=== PATIENT | male | born 1950 | race Caucasian/White ===

== ENCOUNTER 2022-08-13 11:15 | Inpatient (IN) | payer MEDICARE, OTHER, SELFPAY ==
--- NOTE | ~2022-08-13 | CT_ITS ---
EXAMINATION: CT angio head neck CLINICAL INFORMATION: Subacute stroke. COMPARISON: None. TECHNIQUE: Psychiatry Teacher images were obtained. A CT angiogram of the head and neck was performed in the arterial phase after the intravenous administration of 50 mL Omnipaque 350. Pre and delayed postcontrast images of the head were also obtained. MIP reconstructions were generated in multiple orientations at the acquisition workstation. Multiple three-dimensional surface rendered images and maximum intensity projection images were generated on a dedicated 3-D lab workstation. Arterial stenoses are measured in accordance with NASCET criteria or similar method if applicable. This CT examination was performed using dose optimization techniques as appropriate, including one or more of the following: Automated exposure control, iterative reconstruction, and adjustment of technique factors (mA and/or kVp) according to patient size (this includes techniques or standardized protocols for targeted exams where dose is matched to indication/reason for exam). Fleischner Society criteria for the followup of incidental pulmonary nodules was implemented if appropriate. Total exam dose-length product 2517 mGy-cm FINDINGS: Head: Postcontrast images reveal no abnormal intracranial mass or enhancement. There is no acute intracranial hemorrhage or abnormal extra-axial collection. No intracranial mass effect. No hydrocephalus. Scattered nonspecific foci of hypoattenuation are visualized within the periventricular white matter. No evidence of acute territorial infarct. The calvarium and skull base are intact. Mastoid air cells and middle ear cavities are well aerated. No active paranasal sinus disease. CT angiogram neck: The aortic arch apex is normal. Origins of the major aortic branches are widely patent. Common carotid arteries are normal. Eccentric partially calcified atheromatous plaque involves both carotid bifurcations. There is mild be due to irregularity involving both extra cranial internal carotid arteries, slightly greater on the left side suggesting the possibility of underlying fibromuscular dysplasia. Extracranial internal carotid arteries are otherwise unremarkable. Fibromuscular dysplasia is also evident along the V2 V3 junction of both vertebral arteries. CT angiogram head: Intracranial internal carotid arteries are patent. Intradural vertebral artery segments and basilar artery are patent. Visualized portions of the anterior, middle, and posterior cerebral artery complexes are normal. No intracranial large vessel occlusion. Other: Soft tissues of the neck including the thyroid gland are normal. Grossly no pathologically enlarged cervical lymph nodes. Visualized lung apices are clear. There is no acute osseous finding. Specific no worrisome lytic or blastic osseous lesion. There is is advanced multilevel degenerative spondylosis of the cervical spine with at least mild canal stenosis at multiple levels. CT/CT angio head neck IMPRESSION: The known white matter infarct involving the right centrum semiovale is well visualized on this examination. No new infarct or hemorrhage. No abnormal intracranial mass or enhancement. There are anatomic features of fibromuscular dysplasia involving both extracranial internal carotid arteries and vertebral arteries. There is eccentric partially calcified atheromatous plaque involves both carotid bifurcations. No stenosis of the cervical carotid or vertebral arteries. No intracranial large vessel occlusion. There are scattered chronic small vessel ischemic changes within the periventricular white matter. No evidence of acute territorial infarct or hemorrhage. No abnormal intracranial mass or enhancement. There is advanced multilevel degenerative spondylosis of the cervical spine with at least mild canal stenosis at multiple levels. If there are clinical symptoms of compressive myelopathy then a dedicated cervical spine MRI can be obtained for better anatomic characterization of the cord and canal.
[2022-08-13 11:25] VITALS: BP 166/77; PULSE 61; RESP 18; TEMP 36.6; O2SAT 97; BMI 31.0
--- NOTE | 2022-08-13 11:50 | ECG_ITS ---
Test Reason : NEURO SYMPTOMS Blood Pressure : / mmHG Vent. Rate : 064 BPM Atrial Rate : 064 BPM P-R Int : 182 ms QRS Dur : 104 ms QT Int : 402 ms P-R-T Axes : 050 002 024 degrees QTc Int : 414 ms Normal sinus rhythm Minimal voltage criteria for LVH, may be normal variant ( R in aVL ) Inferior infarct , age undetermined Abnormal ECG No previous ECGs available Referred By: Melissa King Electronically Signed By:Cl De Los Santos
--- NOTE | 2022-08-13 11:57 | ED.NEUROSD ---
HPI - Neuro Symptoms/Deficit General Chief Complaint: Stroke Stated Complaint: Stroke Time Seen by Provider: 08/13/22 11:35 Source: patient and family Mode of arrival: ambulatory History of Present Illness HPI Narrative: This is a 72-year-old male, history of hypertension and remote history of atrial fibrillation for which he was never placed on anticoagulation and underwent an ablation procedure. Patient currently takes an aspirin daily and states that on Thursday he began to feel a little dizzy, not myself, lightheaded? but denies any visual/speech changes and denies any difficulty with numbness/tingling/weakness unilaterally and states that when he took his blood pressure he was noted to be hypertensive. Patient then followed up with his primary care provider on Thursday who felt like he may have some very mild left lid droop and sent him for an MRI. Patient states that he feels better today and also says that he felt better yesterday when he saw his primary care provider. Patient denies any recent illnesses or feelings of racing heart/palpitations. Related Data Home Medications Medication Instructions Recorded Confirmed aspirin 81 mg tablet,delayed 81 mg PO DAILY 08/13/22 08/13/22 release atorvastatin 40 mg tablet 1 tab PO BEDTIME 08/13/22 08/13/22 cholecalciferol (vitamin D3) 50 50 mcg PO DAILY 08/13/22 08/13/22 mcg (2,000 unit) capsule gabapentin 600 mg tablet 1 tab PO TID 08/13/22 08/13/22 losartan 25 mg tablet 1 tab PO DAILY 08/13/22 08/13/22 multivitamin 1 tab PO DAILY 08/13/22 08/13/22 nebivolol 20 mg tablet 1 tab PO DAILY 08/13/22 08/13/22 tamsulosin 0.4 mg capsule 1 cap PO DAILY 08/13/22 08/13/22 Allergies Allergy/AdvReac Type Severity Reaction Status Date / Time No Known Allergies Allergy Verified 08/13/22 11:24 Review of Systems Review of Systems: Pertinent positives and negatives as stated in HPI [facility] Past Medical History Source: nursing notes reviewed Medical History GI bleed Hypertension Surgical History History of total knee replacement Social History Social History Alcohol intake: current Alcohol intake frequency: holidays/special occasions only Smoked in Last 30 Days: No Use of substances other than those prescribed or required for medical reasons: No Advance Directives: Yes Advance Directives Information Provided: No Advance Directives on File: No Physical Exam Vital Signs: Vital Signs: Last Vital Signs Temp 97.8 F 08/13/22 11:25 Pulse 58 08/13/22 12:00 Resp 16 08/13/22 12:00 BP 167/86 H 08/13/22 12:00 Pulse Ox 94 08/13/22 12:00 O2 Del Method 08/13/22 12:00 BMI result Body Mass Index 31.0 VITAL SIGNS: Reviewed. GENERAL: Well developed, well nourished, in no acute distress. HEAD: Normocephalic/atraumatic EYES: PERRLA, EOMI, no nystagmus EARS: Ext canals without abnormality OROPHARYNX: no oral lesions noted, posterior pharynx clear NECK: Supple, no adenopathy LUNGS: Normal breath sounds. No adventitious sounds or accessory muscle use. SpO2<94> CARDIOVASCULAR: Regular rate and rhythm without noted murmurs, no JVD or lower extremity edema. ABDOMEN: Soft, non-tender, non-distended with bowel sounds. MUSCULOSKELETAL: No tenderness, deformities, or effusions noted on gross inspection. EXTREMITIES: No cyanosis, clubbing or edema. SKIN: Inspection of the skin reveals no rashes, ulcerations, jaundice, pallor, or petechiae. NEUROLOGIC: Alert and oriented x 4. Strength and sensation to light touch were grossly intact x 4, no facial asymmetry, no pronator drift, no sensory deficits, finger pass pointing demonstrates some subtle ataxia, heel to clement also demonstrates some very mild ataxia on the left, otherwise cranial nerves 2-12 are grossly intact. On attempting to ambulate the patient he was noted to have an unsteady gait on attempts to walk a line?. Medications Administered Discontinued Medications Generic Name Dose Route Start Last Admin Trade Name Freq PRN Reason Stop Dose Admin Aspirin 81 mg 08/13/22 13:22 08/13/22 13:33 Aspirin 81 Mg Tab.Chew PO 08/13/22 13:23 81 mg ONCE ONE Administration Iohexol 70 ml 08/13/22 13:19 08/13/22 13:19 Iohexol 350 Mg/Ml 75 Ml Infus..Btl IV 08/13/22 13:20 70 ml ONCE ONE Administration Medical Decision Making Medical Decision Making [facility] Narrative: 72-year-old male with history and clinical presentation consistent with subacute lacunar stroke on outpatient MRI with residual albeit mild ataxia for the left side, no gross motor or sensory deficits noted, blood pressure is noted to be SBP-166, EKG demonstrates normal sinus rhythm, the billing coordinator (Cary) is at the bedside with me and is attempting to get the MRI results from [facility] uploaded into our PACS system, will proceed with labs, CT angio of head and neck (not stroke protocol). The family is at bedside and is aware of the workup and plan for admission. 1324: On review of all investigations my interpretation is patient is had subacute right-sided stroke, report is that it is look who known are but exact location is not known at this time. Patient with residual left-sided ataxia but no gross motor or sensory deficits. Patient is already on aspirin, CRP is mildly elevated otherwise TSH/ESR are within normal limits. Neurology was at bedside and is involved with patient's care. I discussed the case with the inpatient hospitalist who accepts admission, consult for medication reconciliation has been entered, patient will be admitted for telemetry and further evaluation. Both he and his family are aware of the plan. Differential Diagnosis Differential Diagnoses: The differential diagnosis associated with the presentation includes Please see the discussion above Consult Healthcare Provider Management of the patient was discussed with: Community Service Representative Neurology In Hospitalist Lab Data [facility] Lab Attestation statement: I reviewed the patient's lab results. Please see the discussion above 08/13/22 12:13 08/13/22 12:13 Labs: Lab Results 08/13/22 08/13/22 08/13/22 Range/Units 12:13 12:13 12:13 WBC 4.5 L (4.8-10.8) X10*3/uL RBC 4.73 (4.60-5.80) X10*6/uL Hgb 13.3 L (14.0-18.0) g/dl Hct 40.1 L (42.0-52.0) % MCV 84.8 (80.0-98.0) fL MCH 28.1 (27.0-33.0) pg MCHC 33.2 (31.0-36.0) g/dl RDW 14.1 (11.0-16.0) % Plt Count 143 L (160-400) X10*3/uL MPV 9.3 L (9.4-12.4) fL Immature Gran % (Auto) 0.4 (0.0-0.4) % Neut % (Auto) 63.8 (45-73) % Lymph % (Auto) 23.0 (20-40) % Knott % (Auto) 9.3 (2-11) % Eos % (Auto) 3.1 (0-4) % Baso % (Auto) 0.4 (0-2) % Lymph # (Auto) 1.0 L (1.2-4.9) X10*3/uL Knott # (Auto) 0.4 (0.1-1.2) X10*3/uL Eos # (Auto) 0.1 (0.0-0.4) X10*3/uL Baso # (Auto) 0.0 (0.0-0.2) X10*3/uL Abs Immat Gran (auto) 0.02 (0.00-0.03) X10*3/uL Absolute Neuts (auto) 2.9 (2.0-8.3) x10*3/uL Absolute Nucleated RBC 0.000 (0.0-0.012) X10*3/uL Nucleated RBC % (auto) 0.0 (0.0-0.2) /100WBC ESR (0-15) MM/HR PT 12.3 (10.0-13.1) SEC INR 1.1 (0.9-1.1) APTT 30.6 (26.0-36.4) SEC Sodium 140 (135-145) mmol/L Potassium 4.4 (3.3-5.1) mmol/L Chloride 105 (96-108) mmol/L Carbon Dioxide 29 (22-29) mmol/L Anion Gap 10 L (12-20) BUN 18 H (9-16) mg/dL Creatinine 0.90 (0.5-1.4) mg/dL Estim Creat Clear Calc 84.4 Estimated GFR > 60 POC Glucose (60-115) mg/dL Random Glucose 90 (60-115) mg/dL Calcium 9.4 (8.4-10.2) mg/dL Total Bilirubin 1.1 H (0.0-1.0) mg/dL AST 18 (5-37) U/L ALT 25 (0-40) U/L Alkaline Phosphatase 78 (39-117) U/L Troponin I High Sens (<3.5-35.0) ng/L C-Reactive Protein 0.51 H (< or = 0.50) mg/dL Total Protein 6.6 (6.5-8.0) g/dL Albumin 4.1 (3.5-5.0) g/dL TSH 0.96 (0.32-4.0) uIU/mL COVID-19 ([facility]STIAN) (Negative) COVID-19 Clin Com 08/13/22 08/13/22 08/13/22 Range/Units 12:13 12:13 12:13 WBC (4.8-10.8) X10*3/uL RBC (4.60-5.80) X10*6/uL Hgb (14.0-18.0) g/dl Hct (42.0-52.0) % MCV (80.0-98.0) fL MCH (27.0-33.0) pg MCHC (31.0-36.0) g/dl RDW (11.0-16.0) % Plt Count (160-400) X10*3/uL MPV (9.4-12.4) fL Immature Gran % (Auto) (0.0-0.4) % Neut % (Auto) (45-73) % Lymph % (Auto) (20-40) % Knott % (Auto) (2-11) % Eos % (Auto) (0-4) % Baso % (Auto) (0-2) % Lymph # (Auto) (1.2-4.9) X10*3/uL Knott # (Auto) (0.1-1.2) X10*3/uL Eos # (Auto) (0.0-0.4) X10*3/uL Baso # (Auto) (0.0-0.2) X10*3/uL Abs Immat Gran (auto) (0.00-0.03) X10*3/uL Absolute Neuts (auto) (2.0-8.3) x10*3/uL Absolute Nucleated RBC (0.0-0.012) X10*3/uL Nucleated RBC % (auto) (0.0-0.2) /100WBC ESR 7 (0-15) MM/HR PT (10.0-13.1) SEC INR (0.9-1.1) APTT (26.0-36.4) SEC Sodium (135-145) mmol/L Potassium (3.3-5.1) mmol/L Chloride (96-108) mmol/L Carbon Dioxide (22-29) mmol/L Anion Gap (12-20) BUN (9-16) mg/dL Creatinine (0.5-1.4) mg/dL Estim Creat Clear Calc Estimated GFR POC Glucose (60-115) mg/dL Random Glucose (60-115) mg/dL Calcium (8.4-10.2) mg/dL Total Bilirubin (0.0-1.0) mg/dL AST (5-37) U/L ALT (0-40) U/L Alkaline Phosphatase (39-117) U/L Troponin I High Sens 12.1 (<3.5-35.0) ng/L C-Reactive Protein (< or = 0.50) mg/dL Total Protein (6.5-8.0) g/dL Albumin (3.5-5.0) g/dL TSH (0.32-4.0) uIU/mL COVID-19 ([facility]IAN) Negative (Negative) COVID-19 Clin Com See Note 08/13/22 Range/Units 12:40 WBC (4.8-10.8) X10*3/uL RBC (4.60-5.80) X10*6/uL Hgb (14.0-18.0) g/dl Hct (42.0-52.0) % MCV (80.0-98.0) fL MCH (27.0-33.0) pg MCHC (31.0-36.0) g/dl RDW (11.0-16.0) % Plt Count (160-400) X10*3/uL MPV (9.4-12.4) fL Immature Gran % (Auto) (0.0-0.4) % Neut % (Auto) (45-73) % Lymph % (Auto) (20-40) % Knott % (Auto) (2-11) % Eos % (Auto) (0-4) % Baso % (Auto) (0-2) % Lymph # (Auto) (1.2-4.9) X10*3/uL Knott # (Auto) (0.1-1.2) X10*3/uL Eos # (Auto) (0.0-0.4) X10*3/uL Baso # (Auto) (0.0-0.2) X10*3/uL Abs Immat Gran (auto) (0.00-0.03) X10*3/uL Absolute Neuts (auto) (2.0-8.3) x10*3/uL Absolute Nucleated RBC (0.0-0.012) X10*3/uL Nucleated RBC % (auto) (0.0-0.2) /100WBC ESR (0-15) MM/HR PT (10.0-13.1) SEC INR (0.9-1.1) APTT (26.0-36.4) SEC Sodium (135-145) mmol/L Potassium (3.3-5.1) mmol/L Chloride (96-108) mmol/L Carbon Dioxide (22-29) mmol/L Anion Gap (12-20) BUN (9-16) mg/dL Creatinine (0.5-1.4) mg/dL Estim Creat Clear Calc Estimated GFR POC Glucose 81 (60-115) mg/dL Random Glucose (60-115) mg/dL Calcium (8.4-10.2) mg/dL Total Bilirubin (0.0-1.0) mg/dL AST (5-37) U/L ALT (0-40) U/L Alkaline Phosphatase (39-117) U/L Troponin I High Sens (<3.5-35.0) ng/L C-Reactive Protein (< or = 0.50) mg/dL Total Protein (6.5-8.0) g/dL Albumin (3.5-5.0) g/dL TSH (0.32-4.0) uIU/mL COVID-19 ([facility]IAN) (Negative) COVID-19 Clin Com Independent Interpretation I performed an independent interpretation of an: EKG Interpretation: Normal sinus rhythm, HR-64, VT/QTC are within normal limits, QRS-104 Chronic Conditions Patient?s care impacted by: Hypertension Critical Care Time Critical Care Time Critical Care Time: Yes Total Critical Care Time: 30 Attestation: I personally attest to this time spent taking care of the patient. Discharge Plan Discharge Clinical Impression: Cerebrovascular accident Patient Disposition: Admitted As Inpatient
[2022-08-13 12:00] VITALS: BP 167/86; PULSE 58; RESP 16; O2SAT 94
[2022-08-13 12:20] LABS: MANUAL DIFF FLAG NO
[2022-08-13 12:25] LABS: Basophils Percent Auto 0.4 % (0-2); Eosinophils Absolute Auto 0.1 X10*3/uL (0.0-0.4); Eosinophils Percent Auto 3.1 % (0-4); Hematocrit 40.1 % (42.0-52.0); Hemoglobin 13.3 g/dl (14.0-18.0); Imm Gran Abs Auto 0.02 X10*3/uL (0.00-0.03); Imm Gran Pct Auto 0.4 % (0.0-0.4); Mean Corpuscular HGB Conc 33.2 g/dl (31.0-36.0); Mean Corpuscular Hemoglobin 28.1 pg (27.0-33.0); Mean Corpuscular Volume 84.8 fL (80.0-98.0); Mean Platelet Volume 9.3 fL (9.4-12.4); Monocytes Absolute Auto 0.4 X10*3/uL (0.1-1.2); Monocytes Percent Auto 9.3 % (2-11); Neutrophils Absolute Auto 2.9 x10*3/uL (2.0-8.3); Neutrophils Percent Auto 63.8 % (45-73); Platelet Count 143 X10*3/uL (160-400); Red Blood Count 4.73 X10*6/uL (4.60-5.80); Red Cell Distribution Width 14.1 % (11.0-16.0); White Blood Count 4.5 X10*3/uL (4.8-10.8)
[2022-08-13 12:27] LABS: INTERNATIONAL NORM RATIO 1.1 (0.9-1.1); Prothrombin Time 12.3 SEC (10.0-13.1)
--- OUTSIDE RECORDS SUMMARY | 2022-08-13 12:40 | XMS_ITS | Continuity of Care Document ---
:1950 Author Organization [facility] Address [address] [place] [phone]- Care Team Providers Name Role Phone Eren Petty MD Primary Care Physician Encounter [facility] [place] Date(s): 02/13/20 - 02/20/20 [facility] [address] [place] [phone]- [facility] Attending Physician: Oumsane Gonzalez MD Admitting Physician: Ousmane Gonzalez MD Referring Physician: Eren Petty MD Allergies, Adverse Reactions, Alerts Substance Reaction Severity Status simvastatin body aches Active Immunizations Given and Recorded Vaccine Date Status Refusal Reason tetanus-diphtheria toxoids (Td) 04/23/11 Given Medications aspirin 81 mg oral delayed release tablet 81 mg, 1, tablet, By Mouth, Daily, # 30 tablet, Refills 0, Tot. Refills 0, Maintenance, 06/08/18 9:38:59 EST, Print Requisition Start Date: 06/08/18 Stop Date: 07/08/18 Status: Orderedatenolol 50 mg oral tablet 50 mg, 1, tablet, By Mouth, Daily in AM, # 30 tablet, Refills 0, Maintenance, 01/12/20 13:57:00 EDT Start Date: 01/12/20 Status: Orderedatorvastatin 40 mg oral tablet 1 tablet = 40 mg, By Mouth, Daily, # 90 tablet, 1 Refills, Maintenance, 08/22/19 13:19:00 EST, Tablet, [id number], 176, cm, 08/05/19 8:03:00 EST, Height, 96, kg, 06/07/18 19:30:00 EST, Dry Weight Start Date: 08/22/19 Stop Date: 02/18/20 Status: OrderedFamotidine 1 tablet, By Mouth, 2 times a day, 0 Refills, Maintenance, 01/12/20 14:09:00 EDT Start Date: 01/12/20 Status: Orderedgabapentin 300 mg oral capsule 600 mg, 2, capsule, By Mouth, 3 times a day, # 540 capsule, Refills 3, Tot. Refills 3, Maintenance, 05/27/19 8:29:34 EST, Route to Pharmacy Electronically, [id number], [facility]/pharmacy #[id number] Start Date: 05/27/19 Stop Date: 05/21/20 Status: OrderedLoratadine 10 mg, By Mouth, Daily in AM, Refills 0, Maintenance, 04/16/18 8:31:40 EDT Start Date: 04/16/18 Status: Orderedlosartan 25 mg oral tablet 25 mg, 1, tablet, By Mouth, Daily in AM, # 30 tablet, Refills 0, Maintenance, 01/12/20 14:51:00 EDT Start Date: 01/12/20 Status: OrderedMultivitamin 1 tablet, By Mouth, Daily in AM, 0 Refills, Maintenance, 06/04/18 15:24:06 EST Start Date: 06/04/18 Status: Orderedtamsulosin 0.4 mg oral capsule 0.4 mg, 1, capsule, By Mouth, Daily, # 30 capsule, Refills 0, Maintenance, 02/17/20 13:52:00 EDT Start Date: 02/17/20 Status: OrderedVitamin D3 oral tablet 1 tablet = 400 International_Units, By Mouth, Daily, # 30 tablet, 0 Refills, Maintenance, 05/27/19 8:29:12 EST, Tablet Start Date: 05/27/19 Status: Ordered Problem List Condition Effective Dates Status Health Status Informant Aneurysm of infrarenal abdominal Active aorta(Confirmed) Asthma(Confirmed) Active Benign prostatic Active hyperplasia(Confirmed) Obesity (BMI 32)(Confirmed) Active Radiculopathy of cervical spine, left Active sided C2C3(Confirmed) Aneurysm artery, iliac Active common(Confirmed) Ex-smoker(Confirmed) Active S/P bilateral hernia Active repairs(Confirmed) High cholesterol(Confirmed) Active HTN (hypertension)(Confirmed) Active Kidney stones(Confirmed) Active Mild Mitral regurgitation via 09/02/06 Active ECHO(Confirmed) Glenohumeral arthritis, 08/29/16 Active shoulder(Confirmed) Sciatica(Confirmed) Active Paroxysmal SVT (supraventricular 08/03/06 Active tachycardia), atrial flutter(Confirmed) Social History Social History Type Response Smoking Status Former smoker entered on: 04/16/18 Sex
--- OUTSIDE RECORDS SUMMARY | 2022-08-13 12:40 | XMS_ITS | Continuity of Care Document ---
:1950 Author Organization [facility] Address [address] [place] [phone]- Care Team Providers Name Role Phone Eren Petty MD Primary Care Physician Encounter [facility] [id number] Date(s): 08/05/19 - 09/25/19 [facility] [address] [place] [phone]- [facility] Attending Physician: Ousmane Gonzalez MD Admitting Physician: Ousmane Gonzalez MD Referring Physician: Ousmane Gonzalez MD Allergies, Adverse Reactions, Alerts Substance Reaction Severity Status simvastatin Active Immunizations Given and Recorded Vaccine Date Status Refusal Reason tetanus-diphtheria toxoids (Td) 04/23/11 Given Medications aspirin 81 mg oral delayed release tablet 81 mg, 1, tablet, By Mouth, Daily, # 30 tablet, Refills 0, Tot. Refills 0, Maintenance, 06/08/18 9:38:59 EST, Print Requisition Start Date: 06/08/18 Stop Date: 07/08/18 Status: Orderedatenolol 25 mg oral tablet 25 mg, 1, tablet, By Mouth, Daily, # 90 tablet, Refills 2, Tot. Refills 2, Maintenance, 05/27/19 8:28:23 EST, Route to Pharmacy Electronically, [id number], [facility]/pharmacy #[id number] Start Date: 05/27/19 Stop Date: 02/21/20 Status: Orderedatorvastatin 40 mg oral tablet 1 tablet = 40 mg, By Mouth, Daily, # 90 tablet, 1 Refills, Maintenance, 08/22/19 13:19:00 EST, Tablet, [facility]/pharmacy #[id number], 176, cm, 08/05/19 8:03:00 EST, Height, 96, kg, 06/07/18 19:30:00 EST, Dry Weight Start Date: 08/22/19 Stop Date: 02/18/20 Status: Orderedgabapentin 300 mg oral capsule 600 mg, 2, capsule, By Mouth, 3 times a day, # 540 capsule, Refills 3, Tot. Refills 3, Maintenance, 05/27/19 8:29:34 EST, Route to Pharmacy Electronically, [id number], [facility]/pharmacy #[id number] Start Date: 05/27/19 Stop Date: 05/21/20 Status: OrderedLoratadine 10 mg, By Mouth, Daily, Refills 0, Maintenance, 04/16/18 8:31:40 EDT Start Date: 04/16/18 Status: OrderedMultivitamin Daily, 0 Refills, Maintenance, 06/04/18 15:24:06 EST Start Date: 06/04/18 Status: OrderedVitamin D3 oral tablet 1 tablet [...]
--- OUTSIDE RECORDS SUMMARY | 2022-08-13 12:40 | XMS_ITS | Continuity of Care Document ---
:1950 Author Organization [facility] Address [address] [place] [phone]- Care Team Providers Name Role Phone Eren Petty MD Primary Care Physician Encounter [facility] [place] Date(s): 05/10/21 - 05/17/21 [facility] [address] [place] [address]- Encounter Diagnosis HTN (hypertension) (Discharge Diagnosis) - 05/10/21 Aneurysm artery, iliac common (Discharge Diagnosis) - 05/10/21 Aneurysm of infrarenal abdominal aorta (Discharge Diagnosis) - 05/10/21 Erectile dysfunction (Discharge Diagnosis) - 05/10/21 Obesity (BMI 32) (Discharge Diagnosis) - 05/10/21 Paroxysmal SVT (supraventricular tachycardia), atrial flutter (Discharge Diagnosis) - 05/10/21 Kidney stones (Discharge Diagnosis) - 05/10/21 Attending Physician: Timothy Mccoy MD Referring Physician: Eren Petty MD Allergies, [...] Start Date: 06/08/18 Stop Date: 07/08/18 Status: Orderedatorvastatin 40 mg oral tablet 1 tablet = 40 mg, By Mouth, Daily, # 90 tablet, 3 Refills, Maintenance, 12/28/20 9:58:00 EDT, Tablet, [id number], 175.26, cm, 05/24/20 8:16:00 EST, Height, 93.18, kg, 04/16/20 10:05:00 EDT, DryWeight Start Date: 12/28/20 Stop Date: 12/23/21 Status: OrderedBystolic 20 mg oral tablet 1 tablet = 20 mg, By Mouth, Daily, # 30 tablet, 3 Refills, Maintenance, 05/10/21 16:04:00 EDT, Tablet, [facility]/pharmacy #[id number], Partial fill upon patient request if the prescription is for a schedule II opioid drug., 175.26, cm, 05/10/21 15:46:00 EDT, Heig... Start Date: 05/10/21 Stop Date: 09/07/21 Status: Orderedgabapentin 300 mg oral capsule 600 mg, 2, capsule, By Mouth, 3 times a day, # 540 capsule, Refills 3, Tot. Refills 3, Maintenance, 05/27/19 8:29:34 EST, Route to Pharmacy Electronically, [id number], [facility]/pharmacy #[id number] Start Date: 05/27/19 Stop Date: 05/21/20 Status: [...] SVT (supraventricular 08/03/06 Active tachycardia), atrial flutter(Confirmed) Diagnosis Diagnosis Type Effective Dates Health Clinical Infor mant Status Service Aneurysm artery, Discharge 05/10/21 iliac common Diagnosis HTN (hypertension) Discharge 05/10/21 Diagnosis Kidney stones Discharge 05/10/21 Diagnosis Paroxysmal SVT Discharge 05/10/21 (supraventricular Diagnosis tachycardia), atrial flutter Aneurysm of Discharge 05/10/21 infrarenal Diagnosis abdominal aorta Obesity (BMI 32) Discharge 05/10/21 Diagnosis Erectile Discharge 05/10/21 dysfunction Diagnosis Vital Signs Most recent to oldest [Reference Range]: 1 Height 175.26 cm (05/10/21 3:46 PM) Weight 98 kg (05/10/21 3:46 PM) Oxygen Saturation [94-100 %] 98 % (05/10/21 3:46 PM) Pulse Rate [55-90 bpm] 66 bpm (05/10/21 3:46 PM) Body Mass Index [18.5-24.99] 31.91 *>HHI* (05/10/21 3:46 PM) Blood Pressure [90-138/55-84 mm Hg] 134/68 mm Hg (05/10/21 3:46 PM) Temperature [96.8-100.4 DegF] 97.2 DegF (05/10/21 3:46 PM) Blood pressure sites Arm, left (05/10/21 3:46 PM) Temperature Route Temporal (05/10/21 3:46 PM) Social History Social History Type Response Smoking Status Former smoker entered on: 04/16/18 Sex
--- OUTSIDE RECORDS SUMMARY | 2022-08-13 12:40 | XMS_ITS | Continuity of Care Document ---
:1950 Author Organization [facility] Address [address] [place] [phone]- Care Team Providers Name Role Phone Ro Eren HUFFMAN Primary Care Physician Encounter [facility] [place] [id number] Date(s): 02/16/20 - 03/17/20 [facility] [address] [place] [phone]- [facility] Attending Physician: Kim Cullen Admitting Physician: Kim Cullen Referring Physician: AdmtrKim Allergies, Adverse Reactions, Alerts Substance Reaction Severity [...] mg, By Mouth, Daily, # 90 tablet, 2 Refills, Maintenance, 02/29/20 13:52:00 EDT, Tablet, [id number], 175.26, cm, 01/19/20 8:28:00 EDT, Height, 93.8, kg, 01/19/20 8:28:00 EDT, Dry Weight Start Date: 02/29/20 Stop Date: 5/16/21 Status: OrderedFamotidine 1 tablet, By Mouth, 2 times a day, 0 Refills, Maintenance, 01/12/20 14:09:00 EDT Start Date: 01/12/20 Status: Orderedgabapentin 300 mg oral capsule 600 mg, 2, capsule, By Mouth, 3 times a day, # 540 capsule, Refills 3, Tot. Refills 3, Maintenance, 05/27/19 8:29:34 EST, Route to Pharmacy Electronically, [id number], [facility]/pharmacy #[id number] Start Date: 05/27/19 [...]
--- OUTSIDE RECORDS SUMMARY | 2022-08-13 12:40 | XMS_ITS | Continuity of Care Document ---
:1950 Author Organization [facility] Address [address] [place] [phone]- Care Team Providers Name Role Phone Eren Petty MD Primary Care Physician Encounter [facility] [place] Date(s): 02/14/20 - 02/21/20 [facility] [address] [place] [phone]- [facility] Attending Physician: Michelle Rodriguez NP Admitting Physician: Michelle Rodriguez NP Referring Physician: Eren Petty MD Allergies, Adverse [...] 05/27/19 8:29:34 EST, Route to Pharmacy Electronically, [id number], [facility]/pharmacy #[id number] Start Date: [...]
--- OUTSIDE RECORDS SUMMARY | 2022-08-13 12:40 | XMS_ITS | Continuity of Care Document ---
:1950 Author Organization [facility] Address [address] [place] [address]- Care Team Providers Name Role Phone Ro Eren HUFFMAN Primary Care Physician Encounter [facility] [place] ACCT R [id number] Date(s): 08/10/20 - 09/09/20 [facility] [address] [place], [place] [address] Attending Physician: Kim Cullen Admitting Physician: Kim [...] Refills, Maintenance, 02/29/20 13:52:00 EDT, Tablet, [id number], 175.26, cm, 01/19/20 8:28:00 EDT, Height, 93.8, kg, 01/19/20 8:28:00 EDT, Dry Weight Start Date: 02/29/20 Stop Date: 11/25/20 Status: Orderedgabapentin 300 mg oral capsule 600 mg, 2, capsule, By Mouth, 3 times a day, # 540 capsule, Refills 3, Tot. Refills 3, Maintenance, 05/27/19 8:29:34 EST, Route to Pharmacy Electronically, [id number], [facility]/pharmacy #[id number] Start Date: 05/27/19 Stop Date: 05/21/20 Status: OrderedLoratadine 10 mg, By Mouth, Daily in AM, Refills 0, Maintenance, 04/16/18 8:31:40 EDT Start Date: 04/16/18 Status: Orderedlosartan 25 mg oral tablet 25 mg, 1, tablet, By Mouth, Daily in AM, # 30 tablet, Refills 0, Maintenance, 01/12/20 14:51:00 EDT Start Date: 01/12/20 Status: Orderedmetoprolol 50 mg oral tablet 50 mg, 1, tablet, By Mouth, 2 times a day, # 60 tablet, Refills 5, Tot. Refills 5, Maintenance, 05/18/20 13:39:00 EST, Route to Pharmacy Electronically, [facility]pharm[facility] #[id number], 175.26, cm, 05/18/20 13:25:00 EST, Height, 93.18, kg, 04/16/20 10:05:00 EDT, D... Start Date: 05/18/20 Stop Date: 11/14/20 Status: OrderedMultivitamin 1 tablet, By Mouth, Daily [...]
--- OUTSIDE RECORDS SUMMARY | 2022-08-13 12:40 | XMS_ITS | Continuity of Care Document ---
:1950 Author Organization [facility] Address [address] [place] [address]- Care Team Providers Name Role Phone Ro Eren HUFFMAN Primary Care Physician [place] [facility] [place] 02/25/20 - 06/24/20 [facility] [address] [place] [id number] Attending Physician: Nadine HUFFMAN, Timothy Stinson Referring Physician: Claudio Graves MD Allergies, Adverse Reactions, Alerts Substance Reaction [...] 05/27/19 8:29:34 EST, Route to Pharmacy Electronically, [id number], [facility]/pharmacy #[id number] Start Date: 05/27/19 Stop Date: [...] 05/18/20 13:39:00 EST, Route to Pharmacy Electronically, [facility]/pharmacy #[id number], 175.26, cm, 05/18/20 13:25:00 EST, Height, [...]
--- OUTSIDE RECORDS SUMMARY | 2022-08-13 12:40 | XMS_ITS | Continuity of Care Document ---
:1950 Author Organization [facility] Address [address] [place] [address]- Care Team Providers Name Role Phone Eren Petty MD Primary Care Physician Encounter [facility] [place] Date(s): 09/13/21 - 09/20/21 [facility] [address] [place] [address] Attending Physician: Ousmane Gonzalez MD Admitting Physician: [...] = 20 mg, By Mouth, Daily, # 90 tablet, 3 Refills, Maintenance, 09/04/21 15:30:00 EST, Tablet, [id number], Partial fill upon patient request if the prescription is for a schedule II opioid drug., 175.26, cm, 05/10/21 15:46:00 EDT, [facility] Start Date: 09/04/21 Stop Date: 08/30/22 Status: Orderedgabapentin 300 mg oral capsule 600 mg, 2, capsule, By Mouth, 3 times a day, # 540 capsule, Refills 3, Tot. Refills 3, Maintenance, 05/27/19 8:29:34 EST, Route to Pharmacy Electronically, [id number], [facility]/pharmacy #[id number] Start Date: 05/27/19 Stop [...]
--- OUTSIDE RECORDS SUMMARY | 2022-08-13 12:40 | XMS_ITS | Continuity of Care Document ---
:1950 Author Organization [facility] Address [address] [place] [address]- Care Team Providers Name Role Phone Eren Petty MD Primary Care Physician Encounter [facility] [place] Date(s): 01/19/20 - 01/19/[address] [address]- [facility] Discharge Disposition: A-D/C Home Attending Physician: Tru Alvarado MD Admitting Physician: Tru Alvarado MD Referring Physician: Tru Alvarado MD Allergies, Adverse Reactions, Alerts Substance Reaction [...] 05/27/19 8:29:34 EST, Route to Pharmacy Electronically, [id number], [facility]/pharmacy #[id number] Start Date: 05/27/19 Stop Date: 05/21/20 [...] SVT (supraventricular 08/03/06 Active tachycardia), atrial flutter(Confirmed) Vital Signs Most recent to oldest 1 2 3 [Reference Range]: Height 175.26 cm 175.26 cm (01/19/20 8:28 AM) (01/12/20 2:46 PM) Weight 95.45 kg 95.45 kg (01/19/20 8:28 AM) (01/12/20 2:46 PM) Oxygen Saturation [94-100 98 % 100 % 98 % %] (01/19/20 11:00 AM) (01/19/20 10:45 AM) (01/19/20 8:28 AM) Pulse Rate [55-90 bpm] 58 bpm 58 bpm (01/19/20 10:45 AM) (01/19/20 8:28 AM) Body Mass Index 31.07 31.07 [18.5-24.99] *>HHI* *>HHI* (01/19/20 8:28 AM) (01/12/20 2:46 PM) Blood Pressure 164/90 mm Hg 135/82 mm Hg 152/90 mm Hg [90-138/55-84 mm Hg] *H* (01/19/20 10:45 AM) *H* (01/19/20 11:00 AM) (01/19/20 8:28 A M) Respiratory Rate [16-30 12 br/min 20 br/min br/min] *L* (01/19/20 8:28 AM) (01/19/20 10:45 AM) Temperature [96.8-100.4 98 DegF 97.5 DegF DegF] (01/19/20 10:45 AM) (01/19/20 8:28 AM) Liters per Minute 5 L/min (01/19/20 10:45 AM) Mode of Delivery (Oxygen) Room air Simple face mask Room air (01/19/20 11:00 AM) (01/19/20 10:45 AM) (01/19/20 8:28 AM) Blood pressure sites Arm, right Arm, right (01/19/20 10:45 AM) (01/19/20 8:28 AM) Temperature Route Temporal Temporal (01/19/20 10:45 AM) (01/19/20 8:28 AM) Dry Weight 93.8 kg 95.45 kg (01/19/20 8:28 AM) (01/12/20 2:46 PM) Weight Obtained Via Patient/family stated (01/12/20 2:46 PM) Dry Weight Obtained Via Standing scale Patient/family stated (01/19/20 8:28 AM) (01/12/20 2:46 PM) Social History Social History Type Response Smoking Status Former smoker entered on: 04/16/18 Sex
--- OUTSIDE RECORDS SUMMARY | 2022-08-13 12:40 | XMS_ITS | Continuity of Care Document ---
:1950 Author Organization [facility] Address [address] [place] [address]- Care Team Providers Name Role Phone Ro Eren HUFFMAN Primary Care Physician Encounter [facility] [place] Date(s): 02/29/20 - 03/30/20 [facility] [address] [place] [address]- [facility] Allergies, Adverse Reactions, Alerts Substance Reaction Severity [...] Start Date: 02/29/20 Stop Date: 11/25/20 Status: OrderedFamotidine 1 tablet, By Mouth, 2 times a day, 0 Refills, Maintenance, 01/12/20 14:09:00 EDT Start Date: 01/12/20 Status: Orderedgabapentin 300 mg oral capsule 600 mg, 2, capsule, By Mouth, 3 times a day, # 540 capsule, Refills 3, Tot. Refills 3, Maintenance, 05/27/19 8:29:34 EST, Route to Pharmacy Electronically, [id number], [facility]/pharmacy #[id number] Start Date: 05/27/19 Stop Date: 05/21/20 [...]
--- OUTSIDE RECORDS SUMMARY | 2022-08-13 12:41 | XMS_ITS | Continuity of Care Document ---
:1950 Author Organization [facility] Address [address] [place] [address]- Care Team Providers Name Role Phone Eren Petty MD Primary Care Physician [place] [facility] [place](s): 05/11/21 - 09/08/21 [facility] [address] [place], [place] [address] Attending Physician: Ousmane Gonzalez MD Admitting [...] cm, 05/10/21 15:46:00 EDT, Heig... Start Date: 09/04/21 Stop Date: 08/30/22 Status: Orderedgabapentin 300 mg oral capsule 600 mg, 2, capsule, By Mouth, 3 times a day, # 540 capsule, Refills 3, Tot. Refills 3, Maintenance, 05/27/19 8:29:34 EST, Route to Pharmacy Electronically, [id number], [facility]/pharmacy #[id number] Start Date: [...]
--- OUTSIDE RECORDS SUMMARY | 2022-08-13 12:41 | XMS_ITS | Continuity of Care Document ---
:1950 Author Organization [facility] Address [address] [place] [address]- Care Team Providers Name Role Phone Eren Petty MD Primary Care Phys[id number] Date(s): 08/05/19 - 10/12/19 [facility] [address] [place] [address] [facility] Attending Physician: Ousmane Gonzalez MD Admitting Physician: Ousmane Gonzalez MD Referring Physician: Maykel Sigala MD Allergies, Adverse Reactions, Alerts Substance Reaction [...] 05/27/19 8:28:23 EST, Route to Pharmacy Electronically, [id number], [facility]/pharmacy #[id number] Start Date: 05/27/19 Stop Date: 02/21/20 Status: Orderedatorvastatin 40 mg oral tablet 1 tablet = 40 mg, By Mouth, Daily, # 90 tablet, 1 Refills, Maintenance, 08/22/19 13:19:00 EST, Tablet, [facility]/pharmacy #[id number], 176, cm, 08/05/19 8:03:00 EST, Height, 96, kg, 06/07/18 19:30:00 EST, Dry Weight Start Date: 08/22/19 Stop Date: 02/18/20 Status: Orderedgabapentin 300 mg oral capsule 600 mg, 2, capsule, By Mouth, 3 times a day, # 540 capsule, Refills 3, Tot. Refills 3, Maintenance, 05/27/19 8:29:34 EST, Route to Pharmacy Electronically, [id number], [facility]/pharmacy #[id number] Start Date: 05/27/19 Stop [...]
--- OUTSIDE RECORDS SUMMARY | 2022-08-13 12:41 | XMS_ITS | Continuity of Care Document ---
:1950 Author Organization [facility] Address [address] [place] [address]- Care Team Providers Name Role Phone Eren Petty MD Primary Care Physician Encounter [facility] [place] Date(s): 11/04/19 - 11/11/19 [facility] [address] [place] [address]- [facility] Attending Physician: Ousmane Gonzalez MD Admitting Physician: Ousmane Gonzalez MD Referring Physician: Kathleen Butler Referring Physician: Eren Petty MD Allergies, Adverse [...] 05/27/19 8:28:23 EST, Route to Pharmacy Electronically, [id number], [facility]/pharmacy #[id number] Start Date: 05/27/19 Stop Date: 02/21/20 Status: Orderedatorvastatin 40 mg oral tablet 1 tablet = 40 mg, By Mouth, Daily, # 90 tablet, 1 Refills, Maintenance, 08/22/19 13:19:00 EST, Tablet, [facility]/pharmacy #[id number], 176, cm, 08/05/19 8:03:00 EST, Height, 96, kg, 06/07/18 19:30:00 EST, Dry Weight Start Date: 08/22/19 Stop Date: 02/18/20 Status: Orderedgabapentin 300 mg oral capsule 600 mg, 2, capsule, By Mouth, 3 times a day, # 540 capsule, Refills 3, Tot. Refills 3, Maintenance, 05/27/19 8:29:34 EST, Route to Pharmacy Electronically, [id number], [facility]/pharmacy #[id number] Start Date: 05/27/19 Stop Date: 05/21/20 [...]
--- OUTSIDE RECORDS SUMMARY | 2022-08-13 12:41 | XMS_ITS | Continuity of Care Document ---
:1950 Author Organization [facility] Address [address] [place] [address]- Care Team Providers Name Role Phone Ro Eren HUFFMAN Primary Care Physician [place] [facility] [place] [id number] Date(s): 09/13/21 - 10/13/21 [facility] [address] [place], [place] [address] Attending Physician: Kim Cullen Admitting [...] 05/27/19 8:29:34 EST, Route to Pharmacy Electronically, [id number], [facility]/pharmacy #[id number] Start Date: [...]
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
--- OUTSIDE RECORDS SUMMARY | 2022-08-13 12:41 | XMS_ITS | Continuity of Care Document ---
:1950 Author Organization [facility] Address [address] [place] [address]- Care Team Providers Name Role Phone Ro Eren HUFFMAN Primary Care Physician [place] [facility] [id number] Date(s): 02/09/20 - 03/10/20 [facility] [address] [place] [address]- [facility] Attending Physician: Kim Cullen Admitting Physician: AdmKim mosley Referring Physician: AdmtrKim Allergies, Adverse Reactions, Alerts [...] 05/27/19 8:29:34 EST, Route to Pharmacy Electronically, [id number], [facility]/pharmacy #[id number] Start Date: 05/27/19 Stop Date: [...]
--- OUTSIDE RECORDS SUMMARY | 2022-08-13 12:41 | XMS_ITS | Continuity of Care Document ---
:1950 Author Organization [facility] Address [address] [place] [address]- Care Team Providers Name Role Phone Ro Eren HUFFMAN Primary Care Physician [place] [facility] [place] - 09/04/21 [facility] [address] [place] [address] Attending Physician: Ousmane Gonzalez MD [...] 05/27/19 8:29:34 EST, Route to Pharmacy Electronically, [id number], [facility]/pharmacy #[id number] Start Date: 05/27/19 Stop [...]
--- OUTSIDE RECORDS SUMMARY | 2022-08-13 12:41 | XMS_ITS | Continuity of Care Document ---
:1950 Author Organization [facility] Address [address] [place] [address]- Care Team Providers Name Role Phone Eren Petty MD [id number](s[facility] 08/05/19 - 08/12/19 [facility] [address] [place] [address]- [facility] Attending Physician: Ousmane Gonzalez MD Admitting Physician: Ousmane Gonzalez MD Allergies, Adverse Reactions, [...] 05/27/19 8:28:23 EST, Route to Pharmacy Electronically, [id number], [facility]/pharmacy #[id number] Start Date: 05/27/19 Stop Date: 02/21/20 Status: Orderedatorvastatin 40 mg oral tablet 1 tablet = 40 mg, By Mouth, Daily, # 90 tablet, 0 Refills, Maintenance, 05/27/19 8:26:24 EST, Tablet Start Date: 05/27/19 Stop Date: 08/25/19 Status: Orderedgabapentin 300 mg oral capsule 600 mg, 2, capsule, By Mouth, 3 times a day, # 540 capsule, Refills 3, Tot. Refills 3, Maintenance, 05/27/19 8:29:34 EST, Route to Pharmacy Electronically, [id number], [facility]/pharmacy #[id number] Start Date: 05/27/19 [...] flutter(Confirmed) Vital Signs Most recent to oldest [Reference Range]: 1 Height 176 cm (08/05/19 8:03 AM) Weight 93 kg (08/05/19 8:03 AM) Body Mass Index [18.5-24.99] 30.02 *>HHI* (08/05/19 8:03 AM) Blood Pressure [90-138/55-84 mm Hg] 140/80 mm Hg *H* (08/05/19 8:03 AM) Blood pressure sites Arm, left (08/05/19 8:03 AM) Weight Obtained Via Patient/family stated (08/05/19 8:03 AM) Social History Social History Type Response Smoking Status Former smoker entered on: 04/16/18 Sex
--- OUTSIDE RECORDS SUMMARY | 2022-08-13 12:41 | XMS_ITS | Continuity of Care Document ---
:1950 Author Organization [facility] Address [address] [place] [address]- Care Team Providers Name Role Phone Ro Eren HUFFMAN Primary Care Physician [place] [facility] [place] 07/23/21 - 08/22/21 [facility] [address] [place] [id number] Allergies, Adverse Reactions, Alerts Substance Reaction Severity [...] 3 Refills, Maintenance, 05/10/21 16:04:00 EDT, Tablet, [id number], Partial fill upon patient request if the prescription is for a schedule II opioid drug., 175.26, cm, 05/10/21 15:46:00 EDT, Heig... Start Date: 05/10/21 Stop Date: 09/07/21 Status: Orderedgabapentin 300 mg oral capsule 600 mg, 2, capsule, By Mouth, 3 times a day, # 540 capsule, Refills 3, Tot. Refills 3, Maintenance, 05/27/19 8:29:34 EST, Route to Pharmacy Electronically, [id number], [facility]/pharmacy #[id number] Start Date: 05/27/19 Stop Date: 05/21/20 [...]
--- OUTSIDE RECORDS SUMMARY | 2022-08-13 12:41 | XMS_ITS | Continuity of Care Document ---
:1950 Author Organization [facility] Address [address] [place] [address]- Care Team Providers Name Role Phone Ro Eren HUFFMAN Primary Care Physician [place] [facility] [place]20 - 03/15/20 [facility] [address] [place] [address]- [facility] Allergies, Adverse Reactions, Alerts Substance Reaction [...] 05/27/19 8:29:34 EST, Route to Pharmacy Electronically, [id number], [facility]/pharmacy #[id number] Start Date: 05/27/19 Stop Date: 05/21/20 [...]
--- OUTSIDE RECORDS SUMMARY | 2022-08-13 12:41 | XMS_ITS | Continuity of Care Document ---
:1950 Author Organization [facility] Address [address] [place] [address]- Care Team Providers Name Role Phone Eren Petty MD Primary Care Physician En[place] [facility] [place]s): 08/06/19 - 01/18/20 [facility] [address] [place] [address]- [facility] Attending Physician: Ousmane Gonzalez MD Admitting [...] 05/27/19 8:29:34 EST, Route to Pharmacy Electronically, [id number], [facility]/pharmacy #[id number] Start Date: 05/27/19 Stop Date: [...]
--- OUTSIDE RECORDS SUMMARY | 2022-08-13 12:41 | XMS_ITS | Continuity of Care Document ---
:1950 Author Organization [facility] Address [address] [place] [address]- Care Team Providers Name Role Phone Eren Petty MD Primary Care Physician [place] [facility] [place]31/22 [facility] [address] [place] [address]- [place] Allergies, Adverse Reactions, Alerts Substance Reaction Severity [...] 3 Refills, Maintenance, 01/01/22 7:50:00 EDT, Tablet, [id number], 175.26, cm, 05/10/21 15:46:00 EDT, Height, [...] cm, 05/10/21 15:46:00 EDT, Heig... Start Date: 2/23/22 Stop Date: 08/30/22 Status: Orderedgabapentin 300 mg oral capsule 600 mg, 2, capsule, By Mouth, 3 times a day, # 540 capsule, Refills 3, Tot. Refills 3, Maintenance, 05/27/19 8:29:34 EST, Route to Pharmacy Electronically, [id number], [facility]/pharmacy #[id number] Start Date: 05/27/19 Stop [...]
--- OUTSIDE RECORDS SUMMARY | 2022-08-13 12:41 | XMS_ITS | Continuity of Care Document ---
:1950 Author Organization [facility] Address [address] [place] [address]- Care Team Providers Name Role Phone Ro Eren HUFFMAN Primary Care Physician En[place] [facility] [place] Date(s): 12/28/20 - 01/27/21 [facility] [address] [place] [address] Allergies, Adverse Reactions, Alerts Substance Reaction Severity [...] 3 Refills, Maintenance, 12/28/20 9:58:00 EDT, Tablet, [facility]/pharmacy #[id number], 175.26, cm, 05/24/20 8:16:00 EST, Height, 93.18, kg, 04/16/20 10:05:00 EDT, DryWeight Start Date: 12/28/20 Stop Date: 12/23/21 Status: Orderedgabapentin 300 mg oral capsule 600 mg, 2, capsule, By Mouth, 3 times a day, # 540 capsule, Refills 3, Tot. Refills 3, Maintenance, 05/27/19 8:29:34 EST, Route to Pharmacy Electronically, [id number], [facility]/pharmacy #[id number] Start Date: 05/27/19 [...] By Mouth, 2 times a day, # 180 tablet, Refills 3, Tot. Refills 3, Maintenance, 11/16/20 14:50:00 EDT, Route to Pharmacy Electronically, [facility]/pharmacy #[id number], 175.26, cm, 05/24/20 8:16:00 EST, Height, 93.18, kg, 04/16/20 10:05:00 EDT, D... Start Date: 11/16/20 Stop Date: 11/11/21 Status: OrderedMultivitamin 1 tablet, By Mouth, Daily [...] regurgitation via 09/02/06 Active ECHO(Confirmed) Glenohumeral arthritis, 2/17/17 Active shoulder(Confirmed) Sciatica(Confirmed) Active Paroxysmal SVT (supraventricular 08/03/06 Active tachycardia), atrial flutter(Confirmed) Social History Social History Type Response Smoking Status Former smoker entered on: 04/16/18 Sex
--- OUTSIDE RECORDS SUMMARY | 2022-08-13 12:41 | XMS_ITS | Continuity of Care Document ---
:1950 Author Organization [facility] Address [address] [place] [address]- Care Team Providers Name Role Phone Ro Eern HUFFMAN Primary Care Physician En[place] [facility] [place] [id number] Date(s): 01/15/20 - 02/14/20 [facility] [address] [place] [address]- [facility] Attending Physician: Kim Cullen Admitting Physician: Kim [...] 1 Refills, Maintenance, 08/22/19 13:19:00 EST, Tablet, [facility]/pharmacy #[id number], 176, cm, 08/05/19 8:03:00 EST, [...] 05/27/19 8:29:34 EST, Route to Pharmacy Electronically, [id number], [facility]/pharmacy #[id number] Start Date: 05/27/19 Stop Date: [...]
--- OUTSIDE RECORDS SUMMARY | 2022-08-13 12:41 | XMS_ITS | Continuity of Care Document ---
:1950 Author Organization [facility] Address [address] [place] [id number]- Care Team Providers Name Role Phone Ro Eren HUFFMAN Primary Care Physician Encounter [facility] [place] Date(s): 02/16/20 - 02/23/20 [facility] [address] [place] [id number]- [facility] Attending Physician: Romana RIVERA, Brittni Miller Admitting Physician: Romana RIVERA, Brittni Miller Allergies, Adverse Reactions, Alerts Substance Reaction Severity [...] 1 Refills, Maintenance, 08/22/19 13:19:00 EST, Tablet, [facility]/pharmacy #[id number], 176, cm, 08/05/19 8:03:00 [...] 05/27/19 8:29:34 EST, Route to Pharmacy Electronically, [id number], [facility]/pharmacy #[id number] Start Date: 05/27/19 Stop [...]
--- OUTSIDE RECORDS SUMMARY | 2022-08-13 12:41 | XMS_ITS | Continuity of Care Document ---
:1950 Author Organization [facility] Address [address] [place] [id number]- Care Team Providers Name Role Phone Eren Petty MD Primary Care Physician Encounter [facility] Date(s): 08/10/20 - 08/17/20 [facility] [address] [place] [id number] Attending Physician: Ousmane Gonzalez MD Admitting Physician: [...] 05/27/19 8:29:34 EST, Route to Pharmacy Electronically, [id number], [facility]/pharmacy #[id number] Start Date: 05/27/19 Stop [...] 05/18/20 13:39:00 EST, Route to Pharmacy Electronically, [facility]/pharmacy #[id number], 175.26, cm, 05/18/20 13:25:00 EST, Height, [...]
--- OUTSIDE RECORDS SUMMARY | 2022-08-13 12:41 | XMS_ITS | Continuity of Care Document ---
:1950 Author Organization [facility] Address [address] [place] [id number]- Care Team Providers Name Role Phone Eren Petty MD Primary Care Physician Encounter [facility] Date(s): 09/04/21 - 10/04/21 [facility] [address] [place] [address]- [place] Allergies, Adverse Reactions, Alerts Substance Reaction [...] 05/27/19 8:29:34 EST, Route to Pharmacy Electronically, [id number], [facility]/pharmacy #[id number] Start Date: 05/27/19 Stop Date: [...]
[2022-08-13 12:45] LABS: Alanine Aminotransferase 25 U/L (0-40); Albumin Level 4.1 g/dL (3.5-5.0); Alkaline Phosphatase 78 U/L (39-117); Anion Gap 10 (12-20); Aspartate Amino Transferase 18 U/L (5-37); Bilirubin Total 1.1 mg/dL (0.0-1.0); Blood Urea Nitrogen 18 mg/dL (9-16); C Reactive Protein 0.51 mg/dL (< or = 0.50); Calcium 9.4 mg/dL (8.4-10.2); Carbon Dioxide 29 mmol/L (22-29); Chloride 105 mmol/L (96-108); Creatinine Clr Calc Pharmacy 84.4; Estimated Glomerular Filt Rate > 60; Glucose Random 90 mg/dL (60-115); Potassium 4.4 mmol/L (3.3-5.1); Sodium 140 mmol/L (135-145); Total Protein 6.6 g/dL (6.5-8.0)
[2022-08-13 12:46] LABS: Glucose, Whole Blood 81 mg/dL (60-115)
[2022-08-13 12:46] LABS: Troponin-I High Sensitivity 12.1 ng/L (<3.5-35.0)
[2022-08-13 12:47] LABS: COVID-19 Test Negative (Negative); IDNOW Serial# BCCEAD1C
[2022-08-13 13:00] LABS: TSH reflex Free T4 0.96 uIU/mL (0.32-4.0)
[2022-08-13 13:05] LABS: Partial Thromboplastin Time 30.6 SEC (26.0-36.4)
[2022-08-13 13:06] LABS: Erythrocyte Sedimentation Rate 7 MM/HR (0-15)
[2022-08-13] MEDS: iohexoL 350 MG/ML 75 ML INFUS..BTL 70 ML IV (13:19)
[2022-08-13] MEDS: Aspirin 81 MG TAB.CHEW PO (13:33)
--- NOTE | 2022-08-13 13:49 | PHA.MEDREC ---
Pharmacy Consult ? Medication Reconciliation Pharmacy has completed the medication reconciliation. Patient able to name all medications on his own, last taken this morning for all morning meds
--- NOTE | 2022-08-13 13:50 | P.CNNE_ITS ---
History of Present Illness Data of Consult Service Date: 08/13/22 Primary Care Provider: Eren Petty MD [facility] Reason for consult: Stroke 72 years old man whose previous precise medical history is not known at this [facility]. He was usually following [facility]. Yesterday he developed unsteadiness of gait and was advised to have an MRI of brain done, which apparently revealed a stroke any came to emergency room in this hospital. When I saw him he was feeling better. There was no acute symptom. Review of Systems Review of Systems: No recent cold or flu-like symptoms PMFSH Past Medical History Medical History GI bleed Hypertension Surgical History Surgical History History of total knee replacement Social History Social History Alcohol intake: current Alcohol intake frequency: holidays/special occasions only Smoked in Last 30 Days: No Use of substances other than those prescribed or required for medical reasons: No Advance Directives: Yes Advance Directives Information Provided: No Advance Directives on File: No Meds Allergies Allergy/AdvReac Type Severity Reaction Status Date / Time No Known Allergies Allergy Verified 08/13/22 11:24 Active Medications: Current Medications Pharmacy Consult (Consult Rx Perform Med Rec) 1 each MISCELLANE ONCE PRN PRN Reason: Consult order Home Medications Medication Instructions Recorded Confirmed Last Taken Type aspirin 81 mg tablet,delayed 81 mg PO DAILY 08/13/22 08/13/22 08/13/22 History release atorvastatin 40 mg tablet 1 tab PO BEDTIME 08/13/22 08/13/22 08/12/22 History cholecalciferol (vitamin D3) 50 50 mcg PO DAILY 08/13/22 08/13/22 08/13/22 History mcg (2,000 unit) capsule gabapentin 600 mg tablet 1 tab PO TID 08/13/22 08/13/22 08/13/22 History losartan 25 mg tablet 1 tab PO DAILY 08/13/22 08/13/22 08/13/22 History multivitamin 1 tab PO DAILY 08/13/22 08/13/22 08/13/22 History nebivolol 20 mg tablet 1 tab PO DAILY 08/13/22 08/13/22 08/13/22 History tamsulosin 0.4 mg capsule 1 cap PO DAILY 08/13/22 08/13/22 08/13/22 History Physical Exam Vital Signs: Vital Signs: Last Vital Signs Temp 97.8 F 08/13/22 11:25 Pulse 58 08/13/22 12:00 Resp 16 08/13/22 12:00 BP 167/86 H 08/13/22 12:00 Pulse Ox 94 08/13/22 12:00 O2 Del Method 08/13/22 12:00 BMI result Body Mass Index 31.0 Neuro: Other: Alert and awake with normal spontaneity of speech fluency comprehension and affect. Face revealed mild left-sided flatness. Visual hatch are full. There was no pronator drift. Rxxmxb-[id number] testing was normal. There was no weakness in legs. He was able to get up and take few steps without difficulty. Speech was normal. Results Labs 08/13/22 12:13 08/13/22 12:13 Labs: Short CBC 08/13/22 Range/Units 12:13 WBC 4.5 L (4.8-10.8) X10*3/uL Hgb 13.3 L (14.0-18.0) g/dl Hct 40.1 L (42.0-52.0) % Plt Count 143 L (160-400) X10*3/uL BMP 08/13/22 12:13 Sodium 140 Potassium 4.4 Chloride 105 Carbon Dioxide 29 BUN 18 H Creatinine 0.90 Calcium 9.4 Liver Function 08/13/22 Range/Units 12:13 Total Bilirubin 1.1 H (0.0-1.0) mg/dL AST 18 (5-37) U/L ALT 25 (0-40) U/L Alkaline Phosphatase 78 (39-117) U/L Albumin 4.1 (3.5-5.0) g/dL His MRI of brain revealed a small area of restricted diffusion and right parietal deep white matter. Also noted was quite remarkable bilateral cortical frontoparietal atrophy. CTA of brain and neck revealed mild atherosclerotic disease in extracranial carotid arteries. Assessment and Plan (1) Cerebrovascular accident: Status: Acute 72 years old man who reported his own history stating that he suffered from cardiac arrhythmia type of condition that was treated many years ago, abdominal aortic aneurysm that was treated few years ago, had an MRI of brain yesterday with symptoms of unsteadiness. His MRI of brain revealed a small ischemic infarct and right parietal white matter, which would usually not cause any symptom. His brain scan also reveals significant cortical frontoparietal atrophy. Blood pressure was high. At this time my recommendations are continue anti-platelet agent blood pressure control and statin. Appropriate cardiac evaluation should be done to rule out any cardiac source of embolism. Blood pressure should be controlled. As far as finding of atrophy is concerned, it can be discussed as an outpatient follow-up. Time Spent With Patient Time: Total time managing care of this patient today ____ minutes. Procedures Date of Service Date of Service: 08/13/22
--- NOTE | 2022-08-13 14:05 | P.HPHOSP_ITS ---
History of Present Illness Date of Service: 08/13/22 Chief Complaint: Stroke 72 year old male with HTN, HLD, remote history of who on Thursday had an episod of dizziness and checked his blood pressure at that time and was 170s/98, he rechecked later that day it was still high but dizziness improved, the next day BP was still high and convinced him to go see his Doctor. PCP saw him yesterday and requested an MRI and showed a subacute stroke and he thus instructed to come to the ED. At the moment his symptoms have all resolved algough there is ED documentation that he had trouble walking in straight line. Review of Systems Review of Systems: Gen: no fever Resp: no sob, no cough CV: no chest, no M[place], no leg edema GI: No n/v, no abd pain Neuro: No confusion Yes all other systems are reviewed and are negative [facility] Medical History (Updated 08/13/22 @ 14:12 by Dakotah Livingston MD) GI bleed HLD (hyperlipidemia) Hypertension Surgical History History of total knee replacement Social History Household Members: Spouse Housing: House Do you presently have visiting nurse or other home services: No (outpatient PT for left shoulder) Alcohol intake: current Alcohol intake frequency: holidays/special occasions only Patient Tobacco Use Status: Never used Tobacco Smoked in Last 30 Days: No Use of substances other than those prescribed or required for medical reasons: No Currently Displaying Signs/Symptoms of Drug Intoxication Withdrawal: No Have you been hit, kicked, punched, or otherwise hurt by someone within the past year? If so, by whom?: No Do you feel safe in your current relationship?: Yes Is there a partner from a previous relationship who is making you feel unsafe now?: No Are you made to feel afraid or neglected: No Advance Directives: Yes Advance Directives Information Provided: No Advance Directives on File: No Advance Directives Date on File: 08/13/22 Do you have thoughts of harming others: None Do you have a plan to hurt others: No Plan Recently lost weight without trying: No Nutrition Risks: No Nutritional Risk Poor oral hygiene: No service: Yes Current occupational status: retired Meds Allergies Allergy/AdvReac Type Severity Reaction Status Date / Time No Known Allergies Allergy Verified 08/13/22 11:24 Active Medications: Current Medications Acetaminophen (Acetaminophen 325 Mg Tablet) 650 mg PO Q6H PRN PRN Reason: Pain, Mild (Pain Scale 1-3) Aspirin (Aspirin Enteric Coated 81 Mg Tablet.Dr) 81 mg PO DAILY [facility] Atorvastatin Calcium (Atorvastatin Calcium 40 Mg Tablet) 40 mg PO BEDTIME MEGAN Docusate Sodium (Docusate Sodium 100 Mg Capsule) 100 mg PO BID MEGAN Gabapentin (Gabapentin 600 Mg Tablet) 600 mg PO TID MEGAN Losartan Potassium (Losartan Potassium 25 Mg Tablet) 25 mg PO DAILY MEGAN; Protocol Magnesium Hydroxide (Milk Of Magnesia 30 Ml Oral.Susp) 30 ml PO DAILY PRN PRN Reason: Constipation Melatonin (Melatonin 3 Mg Tablet) 6 mg PO BEDTIME PRN PRN Reason: Insomnia Multivitamins/Vitamin C (Multivitamin Tablet) 1 tab PO DAILY [facility] Non-Formulary Medication (Nebivolol) 1 tab PO DAILY [facility] Ondansetron HCl (Ondansetron Hcl 4 Mg/2 Ml Vial) 4 mg IVPUSH Q8H PRN PRN Reason: Nausea and Vomiting Pharmacy Consult (Consult Rx Perform Med Rec) 1 each MISCELLANE ONCE PRN PRN Reason: Consult order Tamsulosin HCl (Tamsulosin Hcl 0.4 Mg Capsule) 0.4 mg PO DAILY [facility] Vitamin D (Cholecalciferol (Vitamin D3) 25 Mcg Tablet) 50 mcg PO DAILY [facility] Home Medications Medication Instructions Recorded Confirmed Last Taken Type aspirin 81 mg tablet,delayed 81 mg PO DAILY 08/13/22 08/13/22 08/13/22 History release atorvastatin 40 mg tablet 1 tab PO BEDTIME 08/13/22 08/13/22 08/12/22 History cholecalciferol (vitamin D3) 50 50 mcg PO DAILY 08/13/22 08/13/22 08/13/22 History mcg (2,000 unit) capsule gabapentin 600 mg tablet 1 tab PO TID 08/13/22 08/13/22 08/13/22 History losartan 25 mg tablet 1 tab PO DAILY 08/13/22 08/13/22 08/13/22 History multivitamin 1 tab PO DAILY 08/13/22 08/13/22 08/13/22 History nebivolol 20 mg tablet 1 tab PO DAILY 02/08/0408/13/22 08/13/22 History tamsulosin 0.4 mg capsule 1 cap PO DAILY 08/13/22 08/13/22 08/13/22 History Physical Exam Vital Signs and Narrative: Vital Signs: Last Vital Signs Temp 97.8 F 08/13/22 11:25 Pulse 58 08/13/22 12:00 Resp 16 08/13/22 12:00 BP 167/86 H 08/13/22 12:00 Pulse Ox 94 08/13/22 12:00 O2 Del Method 08/13/22 12:00 BMI result Body Mass Index 31.0 Const: Other: Constitutional: Alert, in no distress, overweight. Mental Status: Oriented to person, place and time. Eyes: Pupils are equal, round and reactive to light. Ear, Nose and Throat: Oropharynx clear, mucous membranes moist. Ears and nose without eformities. Trachea midline. Respiratory: Clear to auscultation. No wheezing, rales or rhonchi. Cardiovascular: S1 S2 regular. No murmurs, rubs or gallops. Gastrointestinal: Abdomen soft, non-tender, non-distended. Normal bowel sounds.? Neurologic: Cranial nerves II-XII grossly intact. No focal neurological deficits. Moves all extremities spontaneously.?senssation, intact, gait? of abit Skin: No rashes or lesions.? Musculoskeletal: No cyanosis or clubbing. Psychiatric: Normal mood and affect? Results Labs 08/13/22 12:13 08/13/22 12:13 Labs: Laboratory Results - last 24 hr 08/13/22 08/13/22 08/13/22 12:13 12:13 12:13 MCV 84.8 MCH 28.1 MCHC 33.2 RDW 14.1 Plt Count 143 L MPV 9.3 L Immature Gran % (Auto) 0.4 Neut % (Auto) 63.8 Lymph % (Auto) 23.0 [place] % (Auto) 9.3 Eos % (Auto) 3.1 Baso % (Auto) 0.4 Lymph # (Auto) 1.0 L [place] # (Auto) 0.4 Eos # (Auto) 0.1 Baso # (Auto) 0.0 Abs Immat Gran (auto) 0.02 Absolute Neuts (auto) 2.9 Absolute Nucleated RBC 0.000 Nucleated RBC % (auto) 0.0 ESR PT 12.3 INR 1.1 APTT 30.6 Anion Gap 10 L Estim Creat Clear Calc 84.4 Estimated GFR > 60 POC Glucose Random Glucose 90 Calcium 9.4 Total Bilirubin 1.1 H AST 18 ALT 25 Alkaline Phosphatase 78 Troponin I High Sens C-Reactive Protein 0.51 H Total Protein 6.6 Albumin 4.1 TSH 0.96 COVID-19 ([facility]) COVID-19 Clin Com 08/13/22 08/13/22 08/13/22 12:13 12:13 12:13 MCV MCH MCHC RDW Plt Count MPV Immature Gran % (Auto) Neut % (Auto) Lymph % (Auto) [place] % (Auto) Eos % (Auto) Baso % (Auto) Lymph # (Auto) [place] # (Auto) Eos # (Auto) Baso # (Auto) Abs Immat Gran (auto) Absolute Neuts (auto) Absolute Nucleated RBC Nucleated RBC % (auto) ESR 7 PT INR APTT Anion Gap Estim Creat Clear Calc Estimated GFR POC Glucose Random Glucose Calcium Total Bilirubin AST ALT Alkaline Phosphatase Troponin I High Sens 12.1 C-Reactive Protein Total Protein Albumin TSH COVID-19 ([facility]) Negative COVID-19 Clin Com See Note 08/13/22 12:40 MCV MCH MCHC RDW Plt Count MPV Immature Gran % (Auto) Neut % (Auto) Lymph % (Auto) [place] % (Auto) Eos % (Auto) Baso % (Auto) Lymph # (Auto) [place] # (Auto) Eos # (Auto) Baso # (Auto) Abs Immat Gran (auto) Absolute Neuts (auto) Absolute Nucleated RBC Nucleated RBC % (auto) ESR PT INR APTT Anion Gap Estim Creat Clear Calc Estimated GFR POC Glucose 81 Random Glucose Calcium Total Bilirubin AST ALT Alkaline Phosphatase Troponin I High Sens C-Reactive Protein Total Protein Albumin TSH COVID-19 ([facility]) COVID-19 Clin Com Assessment and Plan (1) Stroke: Status: Acute Plan 72/m with HTN, HLD, remote history of AFIB s/p ablation here with dizziness recently, elevated BP and now found to have subacute stroke 1/ Subacute stroke Monitor on tele to rule our recurent afib echo to rule out intracardia clot continue ASA, Lipitor and control BP Neuro consult PT 2/HTN--resume home meds and adjust as needed 3/HLD --valentino intensity statin Lovenox for DVT prophylaxis Admission for at least 2 days for close monitoring of acute to subacute stroke that may evolve Time Spent With Patient Time: Total time managing care of this patient today ____ minutes. Quality Stroke Does the patient have a stroke diagnosis?: No VTE Prior VTE?: No VTE Risk Level:: Medical - moderate - high VTE Device Contraindication: Treatment Not Indicated VTE Drug Contraindication: N/A - Med Ordered
--- NOTE | 2022-08-13 14:50 | MHC.STROKE ---
Addendum entered by Cary Saleem RN 08/14/22 15:51: LATE ENTRY FOR 08/14/22 1030, I SPOKE WITH DR HEATON AND HE WAS ASSESSED FOR REHAB AND PATIENT IS AMBULATING INDEPENDENTLY, NO NEED FOR PT/OT ASSESSMENT. Original Note: 08/13/22 WALK-IN AT 1115 SENT IN BY MD PCP FOR + MRI DONE YESTERDAY AT [facility]. EXAMINED BY PROVIDER AND MYSELF. ONSET OF SYMPTOMS Thursday08/11/22 AROUND 0800. C/O DIZZINESS, UNSTEADY GAIT. CASE REVIEWED WITH DR MEIER AND CTA H/N RECOMMENDED, ECHOCARDIOGRAM, ASPIRIN, STATIN. PATIENT PASSED NURSING SCREEN, LABS DRAWN, CTA H/N DONE, I HAVE ASKED THE RADIOLOGIST TO READ. WE UPLOADED HIS MRI FROM [facility], DR MEIER REVIEWED THE RESULTS. HE ALSO WANTED ME TO RELAY TO THE PATIENT THAT HE WOULD LIKE TO SEE HIM IN HIS OFFICE AN OUTPATIENT. I DID RELAY THIS TO THE PATIENT AND HIS . I'VE PROVIDED STROKE EDUCATION TO THE PATIENT, HIS BROTHER, AND . I GAVE THEM A SCREEN SHOT OF THE MRI IDENTIFYING THE LOCATION OF THE STROKE. WE REVIEWED THE PLAN OF CARE, TEST RESULTS, LABS, ECHO AND REASON FOR EACH TEST. I REVIEWED THE STROKE EDUCATION BOOKLET AND POWER POINT HANDOUTS. I ANSWERED ALL OF THEIR QUESTIONS. I WILL CONTINUE TO FOLLOW.
[2022-08-13 15:23] VITALS: BP 180/79; PULSE 60; RESP 20; TEMP 36.1; O2SAT 95
--- NOTE | 2022-08-13 15:32 | PC.NURSE ---
report received from ED RN, pt up to floor at 1520. BP high at time of arrival, MD notified and said because of fresh stroke just watch . Admission assessment complete. Family member at bedside. Call mora within reach, safety precautions in place. administrator social welfare per SEP.
[2022-08-13] MEDS: Acetaminophen 325 MG TABLET 650 MG PO (15:52)
[2022-08-13] MEDS: Gabapentin 600 MG TABLET PO ×2 (15:52→20:57)
[2022-08-13] MEDS: Enoxaparin Sodium 40 MG/0.4 ML SYRINGE SUBCUT (15:52)
[2022-08-13 17:00] VITALS: BP 172/84; PULSE 62
[2022-08-13 19:04] VITALS: BP 176/80; PULSE 66; RESP 20; TEMP 36.4; O2SAT 95
--- NOTE | 2022-08-13 19:45 | HE.PHANOTE ---
PT OWN NEBIVOLOL 20 MG TABLET RECEIVED, VERIFIED, LABEL GENERATED AND SENT BACK DOWN TO PATIENTS OWN BIN ON FLOOR.
[2022-08-13] MEDS: Melatonin 3 MG TABLET 6 MG PO (20:57)
[2022-08-13] MEDS: Atorvastatin Calcium 40 MG TABLET PO (20:58)
[2022-08-13] MEDS: Docusate Sodium 100 MG CAPSULE PO (20:59)
[2022-08-13 23:18] VITALS: BP 159/87; PULSE 96; RESP 18; TEMP 37.1; O2SAT 94
[2022-08-14 04:00] VITALS: BP 177/80; PULSE 62; RESP 20; TEMP 36.9; O2SAT 95
--- NOTE | 2022-08-14 07:00 | CA_ITS ---
Transthoracic Echocardiogram Patient (Last, First, Middle): Adrián Lees, Gender: Male Date of : 1950 Age: 72 Procedure Date: 08/14/2022 Procedure Type: Transthoracic Echocardiogram Location: [facility] [place] Height: 175.26 cm Weight: 95.26 kg BSA: 2.11 m2 Heart Rate: 60 bpm BP: 180 / 79 mmHg Member Of Congress: [place] Referring MD: Dakotah Livingston MD Symptoms: stroke Study Quality: Adequate ECG Rhythm: Sinus Conclusions: - Normal left ventricular size and systolic function. There is mildly increased left ventricular wall thickness. The visually estimated ejection fraction is between 55-60%. - Normal right ventricular cavity size and systolic function. - The left atrium is likely dilated. There is no evidence of interatrial shunt by color Doppler. The right atrium is normal in size. Findings Left Ventricle Normal left ventricular size and systolic function. There is mildly increased left ventricular wall thickness. The visually estimated ejection fraction is between 55-60%. There is no evidence of regional wall motion abnormalities. Diastolic function is normal for age. Reduced global longitudinal strain 16%. Right Ventricle Normal right ventricular cavity size and systolic function. Atria The left atrium is likely dilated. There is no evidence of interatrial shunt by color Doppler. The right atrium is normal in size. Aortic Valve There is a normal trileaflet aortic valve. There is mild thickening of the aortic valve. There is no aortic valve stenosis. There is no aortic valve regurgitation. Mitral Valve Normal mitral valve structure and function. There is no mitral valve regurgitation. There is no mitral valve stenosis. Pulmonic Valve The pulmonic valve is likely normal. Tricuspid Valve Normal tricuspid valve structure and function. Normal right atrial pressure. There is no evidence of pulmonary hypertension. Great Vessels All visible segments of the aorta are normal in size. The visualized portions of the pulmonary artery and branches are normal. Venous The inferior vena cava is normal in size and collapses greater than 50% with inspiration. Pericardium/Pleural There is no evidence of pericardial effusion. Prior Study Comparison No prior study available for comparison. Measurements 2D Linear Measurements IVSd: 1.29 0.6-0.9/0.6-1.0 cm LVIDd: 4.86 3.9-5.3/4.2-5.9 cm LVIDd Index: 2.30 2.4-3.2/2.2-3.1 cm/m2 LVIDs: 3.16 2.0-3.6 cm LVPWd: 1.18 0.7-1.1 cm LA Diam: 4.40 2.7-3.8/3.0-4.0 cm LAIDs Index: 2.09 1.5-2.3 cm/m2 LV Mass: 290.20 67-162/88-224 g LV Mass Index: 137.54 43-95/49-115 g/m2 LVOT Diam: 2.00 3.0+(-)1.3 cm 2D Systolic Function EF 4C: 52.90 >55% EF 2C: 50.40 >55% EF BiP: 51.90 >55% Mitral Valve MV Pk E: 0.46 MV PK A: 0.65 MV Decel Time: 301.00 E/A: 0.70 E'Lateral: 6.96 E'Medial: 5.44 E/E' Med: 8.40 E/E' Lat: 6.60 PHT: 88.00 MVA PHT: 2.50 Decel [place]: 1.52 Aortic Valve AoV Pk Kale: 1.40 AoV Pk Grad: 8.00 BARBARA: 2.50 LVOT LVOT Pk Kale: 1.12 LVOT Mn Kale: 0.64 LVOT VTI: 0.20 LVOT Pk Grad: 5.00 LVOT Mn Grad: 2.00 LVOT Diam: 2.00 LVOT Area: 3.14 Diastolic Function MV Pk E: 0.46 MV Pk A: 0.65 E/A: 0.70 E'Medial: 5.44 E/E' Med: 8.40 E' Laterial: 6.96 E/E' Lat: 6.60 Right Ventricle TAPSE (mm): 17.80 TVS' Kale: 10.90 Tricuspid Valve TR Pk Kale: 2.45 TR Pk Grad: 24.00 RA Press: 3.00 RVSP: 27.00 Great Vessels Aorta Sinus of Valsalva: 3.30 2.0-3.5 cm Ao Asc: 3.30 2.1-3.4 cm Pulmonary Veins Pulm Vein S/D 1.60 Pulmonary Valve PV Pk Kale: 1.25 Peak PV Grad: 6.00 Updated in Other Vendor System with Status of Final Cl De Los Santos MD electronically signed on 08/14/2022 2:30:55 PM with status of Final
[2022-08-14 07:28] VITALS: BP 180/90; PULSE 67; RESP 20; TEMP 36.6; O2SAT 94
[2022-08-14 07:58] LABS: Cholesterol 136 mg/dL; HDL Cholesterol 34 mg/dL; LDL Cholesterol Calculated 78 mg/dl; Triglycerides 120 mg/dL
[2022-08-14] MEDS: Losartan Potassium 25 MG TABLET PO ×2 (07:59→09:34)
[2022-08-14] MEDS: Cholecalciferol (Vitamin D3) 25 MCG TABLET 50 MCG PO (07:59)
[2022-08-14] MEDS: Aspirin Enteric Coated 81 MG TABLET.DR PO (07:59)
[2022-08-14] MEDS: Multivitamin TABLET 1 TAB PO (07:59)
[2022-08-14] MEDS: Gabapentin 600 MG TABLET PO (07:59)
[2022-08-14] MEDS: Docusate Sodium 100 MG CAPSULE PO (07:59)
[2022-08-14] MEDS: Tamsulosin HCL 0.4 MG CAPSULE PO (07:59)
--- NOTE | 2022-08-14 08:41 | MHC.CM.PN ---
CM met with Patient at bedside and addressed IMM with him (providing him with the original and placing a copy on the chart). Patient lives in a house with his /HCP and he required no services nor DME FRONT OFFICE REPRESENTATIVE. Home/self care is Patient's goal and CM has initiated and will follow for dc planning. Patient has received Pfizer/Covid vax x4 and his PCP is Dr. Eren Adam
[2022-08-14 10:57] VITALS: BP 152/70; PULSE 61; RESP 20; TEMP 36.5; O2SAT 94
[2022-08-14] MEDS: amLODIPine Besylate 2.5 MG TABLET PO (12:11)
[2022-08-14 13:11] VITALS: BP 145/71; PULSE 61
--- NOTE | 2022-08-14 13:18 | PM.DS ---
DS: Providers Provider Date of Service: 08/14/22 Date of admission: 08/13/22 14:03 Primary care physician: Eren Petty MD Consults: 08/13/22 12:47 Consult to Neurology Stat Consulting Provider: [facility] Reason for consultation: subacute stroke Has provider been notified: Yes 08/13/22 14:00 Consult to Neurology Routine Consulting Provider: Kyree Del Castillo Reason for consultation: stroke Has provider been notified: No DS: Diagnosis Discharge Diagnosis (1) Stroke: Status: Acute DS: Summary Hospital Course Hospital Course: Chief Complaint: Stroke 72 year old male with HTN, HLD, remote history of who on Thursday had an episod of dizziness and checked his blood pressure at that time and was 170s/98, he rechecked later that day it was still high but dizziness improved, the next day BP was still high and convinced him to go see his Doctor. PCP saw him yesterday and requested an MRI and showed a subacute stroke and he thus instructed to come to the ED. At the moment his symptoms have all resolved algough there is ED documentation that he had trouble walking in straight line. Hospital course: Patient was admitted overnight and did better than anticipated without further detelioration, the very high blood pressure has been managed with additional medication with improvement. A CTA of head and neck showed The known white matter infarct involving the right centrum semiovale is well visualized on this examination. No new infarct or hemorrhage. No abnormal intracranial mass or enhancement. There are anatomic features of fibromuscular dysplasia involving both extracranial internal carotid arteries and vertebral arteries. There is eccentric partially calcified atheromatous plaque involves both carotid bifurcations. No stenosis of the cervical carotid or vertebral arteries. No intracranial large vessel occlusion. There are scattered chronic small vessel ischemic changes within the periventricular white matter. No evidence of acute territorial infarct or hemorrhage. No abnormal intracranial mass or enhancement. There is advanced multilevel degenerative spondylosis of the cervical spine with at least mild canal stenosis at multiple levels. If there are clinical symptoms of compressive myelopathy then a dedicated cervical spine MRI can be obtained for better anatomic characterization of the cord and canal. His blood pressure has improved presently 145/71, Losartan has been doubled to 50 mg, Norvasc 2.5 mg added. He will continue aspirin and Lipitor TG is 120, Cholesterl 136, HDL 34, LDL 78. He will follow up with Dr. Del Castillo the neurologist. Time Spent with Patient Time attestation: Total time managing care of this patient today ____ minutes. Discharge coordination time: Greater than 30 minutes Quality: Safe Use of Opioids Does Pt have an Active Cancer Diagnosis on the Problem List?: No Quality: Stroke Does the patient have a stroke diagnosis?: No Physical Exam Vital Signs: Vital Signs: Last Vital Signs Temp 97.7 F 08/14/22 10:57 Pulse 61 08/14/22 13:11 Resp 20 08/14/22 10:57 BP 145/71 H 08/14/22 13:11 Pulse Ox 94 08/14/22 10:57 O2 Del Method 08/14/22 10:57 BMI result Body Mass Index 31.0 DS: Data Data Completed and Pending Labs on day of discharge: Laboratory Results - last 24 hr 08/14/22 07:04 Triglycerides 120 Cholesterol 136 LDL Cholesterol, Calc 78 HDL Cholesterol 34 Discharge Plan Discharge Anticipated Discharge Date/Time: 08/14/22 13:21 Patient Disposition: Home Health Service Discharge Diagnosis: Stroke Referrals: Eren Petty MD [Primary Care Provider] - 1 Week Discharge Medications: New amlodipine [Norvasc] 2.5 mg tablet 2.5 mg PO DAILY Qty: 30 0RF losartan [Cozaar] 50 mg tablet 50 mg PO DAILY Qty: 60 0RF Continued atorvastatin 40 mg tablet 1 tab PO BEDTIME gabapentin 600 mg tablet 1 tab PO TID tamsulosin 0.4 mg capsule 1 cap PO DAILY nebivolol 20 mg tablet 1 tab PO DAILY multivitamin Tablet 1 tab PO DAILY aspirin 81 mg Tablet,Delayed Release (Dr/Ec) 81 mg PO DAILY cholecalciferol (vitamin D3) 50 mcg (2,000 unit) Capsule 50 mcg PO DAILY Discontinued losartan 25 mg tablet 1 tab PO DAILY Discharge Orders: Discharge Order (Routine); Ordered 08/14/22 Ordered By: Dakotah Livingston Diet: Advance to usual diet Activity on Discharge: As tolerated Stand Alone Forms: Patient Portal Discharge page Care Plan Goals: stroke prevention Health Concerns: Elevated blood pressure Plan of Treatment: Take all your medication as prescribed and follow up with your Doctor in a week, call for appointment Follow up with Dr. Del Castillo --Call his office Losartan has been increased to 50 mg Norvasc 2.5 md daily has been added to your blood pressure medication Assessment: As above
--- NOTE | 2022-08-14 13:53 | MHC.CM.PN ---
Patient has been medically cleared for dc to home today, self care. IMM addressed this morning.
== END 2022-08-14 14:15 | disposition home or self-care (01) | DRG 66 ==
LOC: HO.ED 13:26 → HO.EDOVER 14:08 → HO.IMC 14:16
PROVIDERS: Admitting Provider Internal Medicine; Emergency Provider Student in an Organized Health Care Education/Training Program; PCP Internal Medicine; Visit Provider Internal Medicine
DX: I63.81 Other cerebral infarction due to occlusion or stenosis of small artery (principal); E78.5 Hyperlipidemia, unspecified; I10 Essential (primary) hypertension; R26.81 Unsteadiness on feet; Z20.822 Contact with and (suspected) exposure to COVID-19; Z79.82 Long term (current) use of aspirin; Z79.899 Other long term (current) drug therapy
CPT/HCPCS: 36415; 70496; 70498; 80053; 80061; 82947; 84443; 84484; 85025; 85610; 85652; 85730; 86140; 87635; 93005; 93306; 99285; J1650; Q9957; Q9967

== ENCOUNTER 2022-08-22 18:31 | Observation (INO) | payer MEDICARE, OTHER, SELFPAY ==
--- NOTE | ~2022-08-22 | XR_ITS ---
EXAMINATION: PORTABLE CHEST 1 VIEW CLINICAL INFORMATION: cp . COMPARISON: No recent pertinent prior studies are available for comparison. TECHNIQUE: Portable frontal view of the chest was obtained. FINDINGS: The lungs are well expanded. There is a subtle 6 mm nodular density projecting over the lateral right lung base. In theory this may represent a prominent nipple shadow. I do not have any prior films available for comparison No focal infiltrate, effusion, edema, or pneumothorax. Cardiac and mediastinal silhouettes are within normal limits for technique. No acute bony abnormality seen. Left reverse total shoulder arthroplasty is noted. Bone anchors in the right humeral head. Degenerative changes in both acromioclavicular joints and spine XR/XR chest 1V IMPRESSION: Chronic appearing and postoperative changes. There is a subtle 6 mm nodular density projecting over the lateral right lung base. In theory this may represent a prominent nipple shadow. I do not have any prior films available for comparison. Repeat PA and lateral view of the chest with nipple markers would be recommended. If this finding persists, a CT scan may be needed to evaluate further.
--- NOTE | ~2022-08-22 | XR_ITS ---
EXAMINATION: XR CHEST CLINICAL INFORMATION: Question nodularity on prior chest radiograph COMPARISON: 08/22/2022 TECHNIQUE: 2 views of the chest were obtained. FINDINGS: The nodule previously observed at right lateral base on 08/22/2022 is faintly visible on this current exam and does not correspond to a nipple shadow. Otherwise, lungs are unremarkable. No consolidation or pleural effusion. Cardiomediastinal silhouette has normal size and contour. Intact anchor screws are present within the greater tuberosity of the right humerus. 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 Normal alignment of partially visualized components of the reverse left total shoulder arthroplasty. XR/XR chest 2V IMPRESSION: The nodule observed on prior chest radiograph is not a nipple shadow and it is not as well-visualized on this current exam. Since this could represent a nodule in the lung parenchyma, noncontrast noncontrast chest CT follow-up is recommended.
[2022-08-22 18:42] VITALS: BP 198/77; PULSE 71; RESP 18; TEMP 36.6; O2SAT 96; BMI 31.0
--- NOTE | 2022-08-22 18:56 | ECG_ITS ---
Test Reason : PE PROTOCALL Blood Pressure : / mmHG Vent. Rate : 064 BPM Atrial Rate : 064 BPM P-R Int : 198 ms QRS Dur : 098 ms QT Int : 396 ms P-R-T Axes : 049 003 025 degrees QTc Int : 408 ms Normal sinus rhythm Minimal voltage criteria for LVH, may be normal variant ( R in aVL ) Inferior infarct (cited on or before 13-AUG-2022) Abnormal ECG When compared with ECG of 13-AUG-2022 12:00, Non-specific change in ST segment in Anterior leads Referred By: Ly Vazquez Electronically Signed By:SINGH LONDON MD
--- NOTE | 2022-08-22 19:14 | PC.NURSE ---
This life insurance underwriter assumed care of this PT at 1900. PT denies any pain, denies CP, or SOB. Reports being called by who sent him for a CT scan and told to come to ED. LS clear throughout. IV line placed, blood work drawn and sent to lab.
[2022-08-22 19:15] LABS: MANUAL DIFF FLAG NO
[2022-08-22 19:16] LABS: Basophils Percent Auto 0.7 % (0-2); Eosinophils Absolute Auto 0.2 X10*3/uL (0.0-0.4); Eosinophils Percent Auto 3.4 % (0-4); Hematocrit 37.8 % (42.0-52.0); Hemoglobin 12.7 g/dl (14.0-18.0); Imm Gran Abs Auto 0.02 X10*3/uL (0.00-0.03); Imm Gran Pct Auto 0.4 % (0.0-0.4); Lymphocytes Absolute Auto 1.4 X10*3/uL (1.2-4.9); Lymphocytes Percent Auto 26.3 % (20-40); Mean Corpuscular HGB Conc 33.6 g/dl (31.0-36.0); Mean Corpuscular Hemoglobin 28.2 pg (27.0-33.0); Mean Corpuscular Volume 83.8 fL (80.0-98.0); Mean Platelet Volume 9.4 fL (9.4-12.4); Monocytes Absolute Auto 0.4 X10*3/uL (0.1-1.2); Monocytes Percent Auto 6.5 % (2-11); Neutrophils Absolute Auto 3.4 x10*3/uL (2.0-8.3); Neutrophils Percent Auto 62.7 % (45-73); Platelet Count 122 X10*3/uL (160-400); Red Blood Count 4.51 X10*6/uL (4.60-5.80); Red Cell Distribution Width 13.5 % (11.0-16.0); White Blood Count 5.4 X10*3/uL (4.8-10.8)
[2022-08-22 19:30] LABS: INTERNATIONAL NORM RATIO 1.1 (0.9-1.1); Prothrombin Time 12.5 SEC (10.0-13.1)
[2022-08-22 19:32] LABS: Partial Thromboplastin Time 29.4 SEC (26.0-36.4)
[2022-08-22 19:39] LABS: Alanine Aminotransferase 19 U/L (0-40); Alkaline Phosphatase 69 U/L (39-117); Anion Gap 13 (12-20); Aspartate Amino Transferase 15 U/L (5-37); Bilirubin Total 0.7 mg/dL (0.0-1.0); Blood Urea Nitrogen 17 mg/dL (9-16); Calcium 9.1 mg/dL (8.4-10.2); Carbon Dioxide 27 mmol/L (22-29); Chloride 104 mmol/L (96-108); Creatinine Clr Calc Pharmacy 85.4; Estimated Glomerular Filt Rate > 60; Glucose Random 151 mg/dL (60-115); Magnesium 1.4 mg/dL (1.6-2.6); Potassium 4.6 mmol/L (3.3-5.1); Sodium 139 mmol/L (135-145); Total Protein 6.5 g/dL (6.5-8.0)
--- NOTE | 2022-08-22 19:55 | ED.GENADULT ---
HPI - General Adult General Chief complaint: General Medical Stated complaint: Blood clot, pcp told pt to come in Time Seen by Provider: 08/22/22 19:03 Source: patient Mode of arrival: ambulatory Limitations: no limitations History of Present Illness HPI narrative: This is a 72-year-old male history of hyperlipidemia, hypertension presenting to the emergency concerned that he might have a pulmonary embolism. According to patient he was seen here on 08/13/2022 and was told he had a ?mini-stroke ?. According to patient he had routine follow-up with his primary care provider, his thorough primary care provider ordered a CTA of the chest because he wanted to look for a possible clot in his lungs, he had an outpatient CTA done today at [facility] in [facility] which revealed tiny filling defects in 1 segment of pulmonary artery to the left lower lung below which could represent tiny nonobstructive pulmonary embolus. He was advised to come into the emergency department by his primary care provider. Patient tells me he is not on blood thinners. Takes a baby aspirin daily. Denies chest pain, shortness of breath, lower extremity pain or swelling. Patient tells me that on Thursday he had an ultrasound of bilateral lower extremities again ordered by his PCP after his emergency room visit ultrasound of bilateral lower extremities negative for DVT per patient. Patient also tells me that on June 26 P had a left shoulder surgery performed without complications. No history of hypercoagulable disorders, DVT or PE, no long travel, not on hormone replacement, no history of malignancy. Related Data Home Medications Medication Instructions Recorded Confirmed aspirin 81 mg tablet,delayed 81 mg PO DAILY 08/13/22 08/13/22 release atorvastatin 40 mg tablet 1 tab PO BEDTIME 08/13/22 08/13/22 cholecalciferol (vitamin D3) 50 50 mcg PO DAILY 08/13/22 08/13/22 mcg (2,000 unit) capsule gabapentin 600 mg tablet 1 tab PO TID 08/13/22 08/13/22 multivitamin 1 tab PO DAILY 08/13/22 08/13/22 nebivolol 20 mg tablet 1 tab PO DAILY 08/13/22 08/13/22 tamsulosin 0.4 mg capsule 1 cap PO DAILY 08/13/22 08/13/22 Previous Rx's Medication Instructions Recorded amlodipine 2.5 mg tablet (Norvasc) 2.5 mg PO DAILY #30 tabs 08/14/22 losartan 50 mg tablet (Cozaar) 50 mg PO DAILY #60 tabs 08/14/22 Allergies Allergy/AdvReac Type Severity Reaction Status Date / Time No Known Allergies Allergy Verified 08/13/22 11:24 Review of Systems Review of Systems: Constitutional : No Weight loss, No Fever, No Chills, No Fatigue, No Malaise ENT/Mouth : No sore throat, No Rhinorrhea Eyes: No Eye Pain, No Swelling, No Redness Cardiovascular : No Chest Pain, No SOB, No Dyspnea on Exertion, No Orthopnea, No Edema, No Palpitations Respiratory : No Cough, No Sputum, No Wheezing Gastrointestinal : No Nausea, No Vomiting, No Diarrhea, No Constipation, No abdominal Pain, No Hematochezia, No Melena Genitourinary : No Dysuria, No Urinary Frequency, No Hematuria, Musculoskeletal : No joint pain, No Myalgias, No Joint Swelling Skin : No Skin Lesions, No rash Neuro : No Weakness, No Numbness, No Dizziness, No Headache Psych : No Anxiety/Panic, No Depression Heme/Lymph: No Bruising, No Bleeding,No Lymphadenopathy Endocrine : No Polyuria, No Polydipsia All other systems reviewed and are negative Yes all other systems are reviewed and are negative [facility] Past Medical History Attestation statement: The following information was validated with the patient. Source: old records reviewed and nursing notes reviewed Medical History GI bleed HLD (hyperlipidemia) Hypertension Surgical History History of total knee replacement Social History Social History Household Members: Spouse Housing: House Do you presently have visiting nurse or other home services: No (outpatient PT for left shoulder) Alcohol intake: current Alcohol intake frequency: holidays/special occasions only Patient Tobacco Use Status: Never used Tobacco Smoked in Last 30 Days: No Use of substances other than those prescribed or required for medical reasons: No Advance Directives: Yes Advance Directives Information Provided: No Advance Directives on File: No Advance Directives Date on File: 08/13/22 service: Yes Current occupational status: retired Physical Exam ED Vital Signs: Vital Signs - 24 hr 08/22/22 18:42 08/22/22 20:19 Temperature 97.8 F 98.2 F Pulse Rate 71 64 Respiratory Rate 18 23 H Blood Pressure 198/77 H 170/82 H Pulse Oximetry 96 94 Oxygen Delivery Method Room Air Room Air BMI result Body Mass Index 31.0 Vital signs stable Appearance: Alert.? Oriented X3.? No acute distress.? Head: Normocephalic, atraumatic, no step-offs or deformities Eyes: Pupils equal, round and reactive to light.? ENT: Pharynx normal.? Neck: Normal inspection.? Neck supple.? CVS: Normal heart rate and rhythm.? Pulses normal.? Respiratory: No respiratory distress.? Breath sounds normal.? Abdomen: Soft and nontender.? Skin: Skin warm and dry.? Normal skin color.? Normal skin turgor.? Extremities: No lower extremity edema.? No calf ttp, negative Joaquina bilaterally. 5/5 strength to bilateral upper and lower extremities Neuro: Oriented X 3.? No motor deficit.? No sensory deficit. CN 2-12 intact Course Reevaluation(s) Reevaluation #1: CBC with normocytic anemia. Patient platelet count 120 to however it appears as though patient has had low platelets in the past, on 08/13/2022 his platelets were 143. Chemistry revealing a low magnesium of 1.4, IV magnesium ordered at this time. No other electrolyte abnormalities requiring intervention. Coags within normal limits. Time: 20:02 Reevaluation #2: Will replete magnesium due to critically low potassium. Patient is now complaining of chest pain, repeat EKG ordered as well as troponin and BNP. Time: 20:33 Reevaluation #3: Will hold Eliquis as patient is now complaining of chest pain will give Toradol at this time. I will also give patient Lovenox as patient has chest pain, shortness of breath and positive PE on imaging. Discussed case with hospitalist who will admit patient at this time. Time: 21:59 Medications Administered Discontinued Medications Generic Name Dose Route Start Last Admin Trade Name Freq PRN Reason Stop Dose Admin Magnesium Sulfate 2 gm in 50 mls @ 25 mls/hr 08/22/22 19:39 08/22/22 21:02 Magnesium Sulfate/H2o IV 08/22/22 21:38 25 mls/hr ONCE ONE Administration Medical Decision Making Medical Decision Making [facility] Narrative: 1958 72-year-old male presents with concerns of pulmonary embolism due to a positive CT scan ordered by his primary care provider Physical exam benign. Concerns for possible PE. Will rule out electrolyte abnormalities, platelet dysfunction Plan at this time basic labs, coags. To note patient's records from [facility] and imaging are in patient's chart. Which do suggest that there is concerns for nonobstructing pulmonary emboli. Risks versus benefits of starting blood thinners were discussed with the patient, answered all questions and he verbalizes understanding. Interested in starting blood thinners for suspected pulmonary embolism. No need for repeat imaging at this time as there is already radiographic evidence of pulmonary embolism. Repeating imaging would increase radiation exposure to patient. I did discuss having a repeat scan with patient, he is not interested at this time. Differential Diagnosis Differential Diagnoses: The differential diagnosis associated with the presentation includes Concerns for possible PE. Will rule out electrolyte abnormalities, platelet dysfunction Admission/Observation Consideration of admission/observation: Escalation of care including admission/observation considered Consult Healthcare Provider Management of the patient was discussed with: Hospitalist Lab Data [facility] Lab Attestation statement: I reviewed the patient's lab results. I reviewed laboratory studies. 08/22/22 19:10 08/22/22 19:10 Labs: Lab Results 08/22/22 08/22/22 08/22/22 Range/Units 19:10 19:10 19:10 WBC 5.4 (4.8-10.8) X10*3/uL RBC 4.51 L (4.60-5.80) X10*6/uL Hgb 12.7 L (14.0-18.0) g/dl Hct 37.8 L (42.0-52.0) % MCV 83.8 (80.0-98.0) fL MCH 28.2 (27.0-33.0) pg MCHC 33.6 (31.0-36.0) g/dl RDW 13.5 (11.0-16.0) % Plt Count 122 L (160-400) X10*3/uL MPV 9.4 (9.4-12.4) fL Immature Gran % (Auto) 0.4 (0.0-0.4) % Neut % (Auto) 62.7 (45-73) % Lymph % (Auto) 26.3 (20-40) % [place] % (Auto) 6.5 (2-11) % Eos % (Auto) 3.4 (0-4) % Baso % (Auto) 0.7 (0-2) % Lymph # (Auto) 1.4 (1.2-4.9) X10*3/uL [place] # (Auto) 0.4 (0.1-1.2) X10*3/uL Eos # (Auto) 0.2 (0.0-0.4) X10*3/uL Baso # (Auto) 0.0 (0.0-0.2) X10*3/uL Abs Immat Gran (auto) 0.02 (0.00-0.03) X10*3/uL Absolute Neuts (auto) 3.4 (2.0-8.3) x10*3/uL Absolute Nucleated RBC 0.000 (0.0-0.012) X10*3/uL Nucleated RBC % (auto) 0.0 (0.0-0.2) /100WBC PT 12.5 (10.0-13.1) SEC INR 1.1 (0.9-1.1) APTT 29.4 (26.0-36.4) SEC Sodium 139 (135-145) mmol/L Potassium 4.6 (3.3-5.1) mmol/L Chloride 104 (96-108) mmol/L Carbon Dioxide 27 (22-29) mmol/L Anion Gap 13 (12-20) BUN 17 H (9-16) mg/dL Creatinine 0.89 (0.5-1.4) mg/dL Estim Creat Clear Calc 85.4 Estimated GFR > 60 Random Glucose 151 H (60-115) mg/dL Calcium 9.1 (8.4-10.2) mg/dL Magnesium 1.4 L* (1.6-2.6) mg/dL Total Bilirubin 0.7 (0.0-1.0) mg/dL AST 15 (5-37) U/L ALT 19 (0-40) U/L Alkaline Phosphatase 69 (39-117) U/L Troponin I High Sens (<3.5-35.0) ng/L B-Natriuretic Peptide (<100) pg/mL Total Protein 6.5 (6.5-8.0) g/dL Albumin 4.0 (3.5-5.0) g/dL 08/22/22 08/22/22 Range/Units 20:38 20:39 WBC (4.8-10.8) X10*3/uL RBC (4.60-5.80) X10*6/uL Hgb (14.0-18.0) g/dl Hct (42.0-52.0) % MCV (80.0-98.0) fL MCH (27.0-33.0) pg MCHC (31.0-36.0) g/dl RDW (11.0-16.0) % Plt Count (160-400) X10*3/uL MPV (9.4-12.4) fL Immature Gran % (Auto) (0.0-0.4) % Neut % (Auto) (45-73) % Lymph % (Auto) (20-40) % [place] % (Auto) (2-11) % Eos % (Auto) (0-4) % Baso % (Auto) (0-2) % Lymph # (Auto) (1.2-4.9) X10*3/uL [place] # (Auto) (0.1-1.2) X10*3/uL Eos # (Auto) (0.0-0.4) X10*3/uL Baso # (Auto) (0.0-0.2) X10*3/uL Abs Immat Gran (auto) (0.00-0.03) X10*3/uL Absolute Neuts (auto) (2.0-8.3) x10*3/uL Absolute Nucleated RBC (0.0-0.012) X10*3/uL Nucleated RBC % (auto) (0.0-0.2) /100WBC PT (10.0-13.1) SEC INR (0.9-1.1) APTT (26.0-36.4) SEC Sodium (135-145) mmol/L Potassium (3.3-5.1) mmol/L Chloride (96-108) mmol/L Carbon Dioxide (22-29) mmol/L Anion Gap (12-20) BUN (9-16) mg/dL Creatinine (0.5-1.4) mg/dL Estim Creat Clear Calc Estimated GFR Random Glucose (60-115) mg/dL Calcium (8.4-10.2) mg/dL Magnesium (1.6-2.6) mg/dL Total Bilirubin (0.0-1.0) mg/dL AST (5-37) U/L ALT (0-40) U/L Alkaline Phosphatase (39-117) U/L Troponin I High Sens 15.9 (<3.5-35.0) ng/L B-Natriuretic Peptide 29 (<100) pg/mL Total Protein (6.5-8.0) g/dL Albumin (3.5-5.0) g/dL Independent Interpretation I performed an independent interpretation of an: EKG (Ventricular rate of 64, ND normal, QRS normal, QT/QTC normal. EKG with normal sinus rhythm. No ST elevations or inversions concerning for ischemia.) Radiology Impression Discussion of test interpretation with radiology: I have reviewed the radiologist's reading. Core Measures AMI core measures followed: Yes Measure exclusions: not indicated Critical Care Time Critical Care Time Critical Care Time: No Discharge Plan Discharge Clinical Impression: Pulmonary embolism, Chest pain Patient Disposition: Admitted As Inpatient
[2022-08-22 20:19] VITALS: BP 170/82; PULSE 64; RESP 23; TEMP 36.8; O2SAT 94
--- NOTE | 2022-08-22 20:31 | PC.NURSE ---
Addendum entered by Juanis Leon 08/23/22 01:34: PT reports effectiveness to med given. Reports pain as dull. Original Note: PT reports left sided CP while laying in bed. States pain is 3/10 constant, nonradiating. Denies any extremity pain or SOB. Provider aware.
[2022-08-22] MEDS: Magnesium Sulfate/H2O 2 GM/50 ML PIGGYBACK IV (21:02)
[2022-08-22 21:12] LABS: B Type Natriuretic Peptide 29 pg/mL (<100)
[2022-08-22 21:14] LABS: Troponin-I High Sensitivity 15.9 ng/L (<3.5-35.0)
[2022-08-22] MEDS: Ketorolac Tromethamine 15 MG/ML VIAL 30 MG IVPUSH (21:54)
[2022-08-22] MEDS: amLODIPine Besylate 5 MG TABLET PO (22:00)
[2022-08-22 22:01] VITALS: BP 176/83; PULSE 62; RESP 20; O2SAT 95
[2022-08-22] MEDS: Enoxaparin Sodium 100 MG/ML SYRINGE SUBCUT (22:04)
--- NOTE | 2022-08-22 22:54 | PM.IMHP ---
History of Present Illness Date of Service: 08/22/22 Chief Complaint: PE 72-year-old male with past medical history of hypertension, HLD, who was recently admitted to the hospital and discharged on management of CVA presents to the hospital stating today's CT angiogram done outpatient showed PE. According to the patient, after having a recent stroke, his PCP wanted to evaluate the reason for the stroke therefore ordered multiple tests including venous duplexes of his bilateral lower extremities as well as CT angiogram of the chest. He received the results today that showed he has a subsegmental PE. Has result with him that showed no evidence of right heart strain. Patient reports 0 chest pain, no shortness of breath, no lower extremity edema, no palpitations, he is complaining of reproducible left sided chest pain when he presses on his chest wall. Patient did have a shoulder replacement procedure 2 weeks ago and is currently undergoing PT. Patient otherwise denies any nausea or vomiting, no abdominal pain, no diarrhea constipation, no urinary symptoms and no lower extremity edema. On arrival to the ED patient hemodynamically stable slightly elevated blood pressure Labs are significant for WBC count of 5.4, hemoglobin of 12.7, hematocrit 37.8, pain is a.m. of 1.4, EKG shows normal sinus rhythm, Chest x-ray shows chronic appearing and postoperative changes, 6 mm nodular density objecting over the lateral right lung base, may be prominent nipple shadow, recommend repeating PA and lateral view of the chest with nipple markers Patient is concerned and would like to be admitted for observation overnight He is given Lovenox subQ and will be admitted for observation Review of Systems Review of Systems: Yes all other systems are reviewed and are negative FORMERLY [facility], [facility] Medical History GI bleed HLD (hyperlipidemia) Hypertension Surgical History History of total knee replacement Social History Household Members: Spouse Housing: House Do you presently have visiting nurse or other home services: No (outpatient PT for left shoulder) Alcohol intake: current Alcohol intake frequency: holidays/special occasions only Patient Tobacco Use Status: Never used Tobacco Smoked in Last 30 Days: No Use of substances other than those prescribed or required for medical reasons: No Advance Directives: Yes Advance Directives Information Provided: No Advance Directives on File: No Advance Directives Date on File: 08/13/22 Nutrition Risks: No Nutritional Risk service: Yes Current occupational status: retired Meds Allergies Allergy/AdvReac Type Severity Reaction Status Date / Time No Known Allergies Allergy Verified 08/22/22 23:41 Active Medications: Current Medications Pharmacy Consult (Consult Rx Perform Med Rec) 1 each MISCELLANE ONCE PRN PRN Reason: Consult order Home Medications Medication Instructions Recorded Confirmed Last Taken Type aspirin 81 mg tablet,delayed 81 mg PO DAILY 08/13/22 08/13/22 08/13/22 History release atorvastatin 40 mg tablet 1 tab PO BEDTIME 08/13/22 08/13/22 08/12/22 History cholecalciferol (vitamin D3) 50 50 mcg PO DAILY 08/13/22 08/13/22 08/13/22 History mcg (2,000 unit) capsule gabapentin 600 mg tablet 1 tab PO TID 08/13/22 08/13/22 08/13/22 History multivitamin 1 tab PO DAILY 08/13/22 08/13/22 08/13/22 History nebivolol 20 mg tablet 1 tab PO DAILY 08/13/22 08/13/22 08/13/22 History tamsulosin 0.4 mg capsule 1 cap PO DAILY 08/13/22 08/13/22 08/13/22 History Baby Aspirin 08/22/22 Unknown History amlodipine 2.5 mg tablet 1 tab PO DAILY 08/22/22 08/22/22 Unknown History atorvastatin 40 mg tablet 1 tab PO DAILY 08/22/22 08/22/22 Unknown History carboxymethylcellulose 0.5 1 drp ophthalmic (eye) BID 08/22/22 08/22/22 Unknown History %-glycerin 0.9 % eye drops (Refresh Optive) gabapentin 600 mg tablet 1 tab PO TID 08/22/22 08/22/22 Unknown History losartan 50 mg tablet 1 tab PO DAILY 08/22/22 08/22/22 Unknown History nebivolol 20 mg tablet 1 tab PO DAILY 08/22/22 08/22/22 Unknown History tadalafil 20 mg tablet 1 tab PO 08/22/22 Unknown History tamsulosin 0.4 mg capsule 1 cap PO DAILY 08/22/22 08/22/22 Unknown History Physical Exam Vital Signs and Narrative: Vital Signs: Last Vital Signs Temp 98.2 F 08/22/22 20:19 Pulse 62 08/22/22 22:01 Resp 20 08/22/22 22:01 BP 176/83 H 08/22/22 22:01 Pulse Ox 95 08/22/22 22:01 O2 Del Method 08/22/22 22:01 BMI result Body Mass Index 31.0 Const: General: cooperative and no acute distress Orientation/consciousness: patient oriented x3 Eyes: General: appearance normal, both eyes and all related structures Resp: Effort & Inspection: normal respiratory effort Auscultation: clear to auscultation bilaterally Cardio: Rate: regular rate Rhythm: regular rhythm GI: Palpation (GI): Soft to palpation Auscultation: normal bowel sounds Skin: General skin exam: no rashes or lesions noted Neuro: Other: No neurological deficits General: patient oriented x3 Cognition (Neuro): normal cognition Extrem: General: Yes normal to inspection and Yes no pedal edema Results Labs 08/22/22 19:10 08/22/22 19:10 Labs: Laboratory Results - last 24 hr 08/22/22 08/22/22 08/22/22 19:10 19:10 19:10 MCV 83.8 MCH 28.2 MCHC 33.6 RDW 13.5 Plt Count 122 L MPV 9.4 Immature Gran % (Auto) 0.4 Neut % (Auto) 62.7 Lymph % (Auto) 26.3 [place] % (Auto) 6.5 Eos % (Auto) 3.4 Baso % (Auto) 0.7 Lymph # (Auto) 1.4 [place] # (Auto) 0.4 Eos # (Auto) 0.2 Baso # (Auto) 0.0 Abs Immat Gran (auto) 0.02 Absolute Neuts (auto) 3.4 Absolute Nucleated RBC 0.000 Nucleated RBC % (auto) 0.0 PT 12.5 INR 1.1 APTT 29.4 Anion Gap 13 Estim Creat Clear Calc 85.4 Estimated GFR > 60 Random Glucose 151 H Calcium 9.1 Magnesium 1.4 L* Total Bilirubin 0.7 AST 15 ALT 19 Alkaline Phosphatase 69 Troponin I High Sens B-Natriuretic Peptide Total Protein 6.5 Albumin 4.0 08/22/22 08/22/22 20:38 20:39 MCV MCH MCHC RDW Plt Count MPV Immature Gran % (Auto) Neut % (Auto) Lymph % (Auto) [place] % (Auto) Eos % (Auto) Baso % (Auto) Lymph # (Auto) [place] # (Auto) Eos # (Auto) Baso # (Auto) Abs Immat Gran (auto) Absolute Neuts (auto) Absolute Nucleated RBC Nucleated RBC % (auto) PT INR APTT Anion Gap Estim Creat Clear Calc Estimated GFR Random Glucose Calcium Magnesium Total Bilirubin AST ALT Alkaline Phosphatase Troponin I High Sens 15.9 B-Natriuretic Peptide 29 Total Protein Albumin Imaging Radiologist's Impressions: Impressions Chest X-Ray 08/22/22 22:16 IMPRESSION: Chronic appearing and postoperative changes. There is a subtle 6 mm nodular density projecting over the lateral right lung base. In theory this may represent a prominent nipple shadow. I do not have any prior films available for comparison. Repeat PA and lateral view of the chest with nipple markers would be recommended. If this finding persists, a CT scan may be needed to evaluate further. Assessment and Plan (1) Pulmonary embolism: Status: Acute (2) Chest pain: Status: Acute (3) Hypertensive crisis: Status: Acute Plan 72-year-old male with his medical history of CVA as well as hypertension presents to the hospital with diagnosis of PE done outpatient # acute PE - likely provoked in the setting of recent hospitalization - asymptomatic - no evidence of right heart strain, BNP normal - this time will start him on Lovenox, can be discharged on NOAC # hypertensive crisis - presented with blood pressure 198 systolic, received 5 mg of amlodipine p.o. with improvement in his BP - will resume home antihypertensives - monitor vitals DVT prophylaxis: Early ambulation Time Spent With Patient Time: Total time managing care of this patient today ____ minutes. Quality Stroke Does the patient have a stroke diagnosis?: No VTE Prior VTE?: No VTE Risk Level:: Medical - low VTE Device Contraindication: Treatment Not Indicated VTE Drug Contraindication: N/A - Med Ordered
[2022-08-23 00:24] LABS: Anion Gap 14 (12-20); Blood Urea Nitrogen 19 mg/dL (9-16); Calcium 9.1 mg/dL (8.4-10.2); Carbon Dioxide 23 mmol/L (22-29); Chloride 106 mmol/L (96-108); Creatinine Clr Calc Pharmacy 81.7; Estimated Glomerular Filt Rate > 60; Glucose Random 95 mg/dL (60-115); Potassium 4.2 mmol/L (3.3-5.1); Sodium 139 mmol/L (135-145); Troponin-I High Sensitivity 16.6 ng/L (<3.5-35.0)
[2022-08-23 01:20] LABS: COVID-19 Test Negative (Negative); IDNOW Serial# 6674DD1D
[2022-08-23 01:31] VITALS: BP 165/81; PULSE 61; RESP 22; O2SAT 93
--- NOTE | 2022-08-23 03:13 | PC.NURSE ---
RN to RN report given. PT will be transported to room 486 by master motorcycle technician. PT aware of plan.
[2022-08-23 04:00] VITALS: BP 150/86; PULSE 60; RESP 18; TEMP 36.8; O2SAT 995
[2022-08-23 06:51] LABS: Alanine Aminotransferase 17 U/L (0-40); Albumin Level 3.9 g/dL (3.5-5.0); Alkaline Phosphatase 70 U/L (39-117); Anion Gap 12 (12-20); Aspartate Amino Transferase 14 U/L (5-37); Bilirubin Total 0.7 mg/dL (0.0-1.0); Blood Urea Nitrogen 19 mg/dL (9-16); Carbon Dioxide 26 mmol/L (22-29); Chloride 105 mmol/L (96-108); Creatinine Clr Calc Pharmacy 78.4; Estimated Glomerular Filt Rate > 60; Glucose Random 95 mg/dL (60-115); Potassium 4.3 mmol/L (3.3-5.1); Sodium 139 mmol/L (135-145); Total Protein 6.3 g/dL (6.5-8.0)
[2022-08-23 07:56] VITALS: BP 162/93; PULSE 89; RESP 20; TEMP 37.2; O2SAT 95
[2022-08-23 08:21] LABS: Magnesium 1.8 mg/dL (1.6-2.6)
--- NOTE | 2022-08-23 08:47 | PHA.MEDREC ---
Pharmacy Consult ? Medication Reconciliation Pharmacy has completed the medication reconciliation. Spoke to patient.
[2022-08-23] MEDS: Tamsulosin HCL 0.4 MG CAPSULE PO (09:26)
[2022-08-23] MEDS: amLODIPine Besylate 2.5 MG TABLET PO ×2 (09:26→12:14)
[2022-08-23] MEDS: Losartan Potassium 50 MG TABLET PO (09:26)
[2022-08-23] MEDS: Apixaban 5 MG TABLET 10 MG PO (09:26)
[2022-08-23] MEDS: Gabapentin 600 MG TABLET PO ×2 (09:27→14:27)
[2022-08-23 11:43] VITALS: BP 172/80; PULSE 61; RESP 20; TEMP 36.3; O2SAT 97
--- NOTE | 2022-08-23 12:35 | PM.DS ---
DS: Providers Provider Date of Service: 08/23/22 Date of admission: 08/22/22 22:51 Date of discharge: 08/23/22 Primary care physician: Eren Petty MD DS: Diagnosis Discharge Diagnosis (1) Pulmonary embolism: Status: Acute (2) Chest pain: Status: Acute (3) Hypertensive crisis: Status: Acute DS: Summary Hospital Course Hospital Course: 72-year-old male with past medical history of hypertension, HLD, who was recently admitted to the hospital and discharged on management of CVA presents to the hospital stating today's CT angiogram done outpatient showed PE.? According to the patient, after having a recent stroke, his PCP wanted to evaluate the reason for the stroke therefore ordered multiple tests including venous duplexes of his bilateral lower extremities as well as CT angiogram of the chest.? He received the results today that showed he has a subsegmental PE.? Has result with him that showed no evidence of right heart strain.? Patient reports 0 chest pain, no shortness of breath, no lower extremity edema, no palpitations, he is complaining of reproducible left sided chest pain when he presses on his chest wall.? Patient did have a shoulder replacement procedure 2 weeks ago and is currently undergoing PT. Patient otherwise denies any nausea or vomiting, no abdominal pain, no diarrhea constipation, no urinary symptoms and no lower extremity edema.? On arrival to the ED patient hemodynamically stable slightly elevated blood pressure Labs are significant for WBC count of 5.4, hemoglobin of 12.7, hematocrit 37.8, pain is a.m. of 1.4, EKG shows normal sinus rhythm, Chest x-ray shows chronic appearing and postoperative changes, 6 mm nodular density objecting over the lateral right lung base, may be prominent nipple shadow, recommend repeating PA and lateral view of the chest with nipple markers Patient is concerned and would like to be admitted for observation overnight He is given Lovenox subQ and will be admitted for observation. Hospital course: Patient was admitted to the hospital because of acute PE diagnose outpatient-patient was started on Lovenox, and observed overnight. currently patient is totally asymptomatic, sats are fine. Walking fine without supplemental oxygen. Patient initially had some reproducible chest pain improved with toraldol -currently denies any symptoms. troponins negative ,bnp normal. Patient was switched to Eliquis,Hold aspirin until the patient is on Eliquis. patient was strongly advised follow-up with PCP and consider outpatient hematology evaluation for duration and if needed for further workup . Hypomagnesemia repleted and resolved. cxr xray incidental finding-There is a subtle 6 mm nodular density projecting over the lateral right lung base-nipple shadow -repeated 2view cxr:The nodule observed on prior chest radiograph is not a nipple shadow and it is not as well-visualized on this current exam. Since this could represent a nodule in the lung parenchyma, noncontrast noncontrast chest CT follow-up is recommended outpatient. patient is asymptomatic, also he had a recent chest imaging out patiently. In addition patient blood pressure is fluctuating but still uncontrolled we have adjusted patient amlodipine to 5 mg daily. plan: Pulmonary embolism-started on Eliquis-10 mg b.i.d. for 1 week and then 5 mg b.i.d. consider outpatient hematology evaluation for further management and workup. Possible Lung nodule- noncontrast noncontrast chest CT follow-up is recommended outpatient in 3- 4 weeks with PCP. htn -adjusted amlodipine . Monitor blood pressure outpatient and follow-up with PCP. Above management discussed the patient detail and he understand and in agreement with the above plan, time spent 50 minute. Time Spent with Patient Time attestation: Total time managing care of this patient today ____ minutes. Discharge coordination time: Greater than 30 minutes Quality: Safe Use of Opioids Does Pt have an Active Cancer Diagnosis on the Problem List?: No Quality: Stroke Does the patient have a stroke diagnosis?: No Physical Exam Vital Signs: Vital Signs: Last Vital Signs Temp 97.4 F 08/23/22 11:43 Pulse 61 08/23/22 11:43 Resp 20 08/23/22 11:43 BP 172/80 H 08/23/22 11:43 Pulse Ox 97 08/23/22 11:43 O2 Del Method 08/23/22 11:43 BMI result Body Mass Index 31.0 Appearance: Alert.? Oriented X3.? not in distress.? Eyes: Pupils equal, round and reactive to light.? Sclera nonicteric.? ENT: Pharynx normal.? Moist mucous membranes. cvs: rrr, [id number] . res: clear to auscultation ,no rhonchii or wheezing abd: no rebound or guarding ,nt, bs present. ext pulses present , no cyanosis . neuro: axo3 , nonfocal. DS: Data Data Completed and Pending Labs on day of discharge: Laboratory Results - last 24 hr 08/22/22 08/22/22 08/22/22 19:10 19:10 19:10 WBC 5.4 RBC 4.51 L Hgb 12.7 L Hct 37.8 L MCV 83.8 MCH 28.2 MCHC 33.6 RDW 13.5 Plt Count 122 L MPV 9.4 Immature Gran % (Auto) 0.4 Neut % (Auto) 62.7 Lymph % (Auto) 26.3 [place] % (Auto) 6.5 Eos % (Auto) 3.4 Baso % (Auto) 0.7 Lymph # (Auto) 1.4 [place] # (Auto) 0.4 Eos # (Auto) 0.2 Baso # (Auto) 0.0 Abs Immat Gran (auto) 0.02 Absolute Neuts (auto) 3.4 Absolute Nucleated RBC 0.000 Nucleated RBC % (auto) 0.0 PT 12.5 INR 1.1 APTT 29.4 Sodium 139 Potassium 4.6 Chloride 104 Carbon Dioxide 27 Anion Gap 13 BUN 17 H Creatinine 0.89 Estim Creat Clear Calc 85.4 Estimated GFR > 60 Random Glucose 151 H Calcium 9.1 Magnesium 1.4 L* Total Bilirubin 0.7 AST 15 ALT 19 Alkaline Phosphatase 69 Troponin I High Sens B-Natriuretic Peptide Total Protein 6.5 Albumin 4.0 COVID-19 ([facility]) COVID-[address] [facility] 08/22/22 08/22/22 08/22/22 20:38 20:39 23:26 WBC RBC Hgb Hct MCV MCH MCHC RDW Plt Count MPV Immature Gran % (Auto) Neut % (Auto) Lymph % (Auto) [place] % (Auto) Eos % (Auto) Baso % (Auto) Lymph # (Auto) [place] # (Auto) Eos # (Auto) Baso # (Auto) Abs Immat Gran (auto) Absolute Neuts (auto) Absolute Nucleated RBC Nucleated RBC % (auto) PT INR APTT Sodium 139 Potassium 4.2 Chloride 106 Carbon Dioxide 23 Anion Gap 14 BUN 19 H Creatinine 0.93 Estim Creat Clear Calc 81.7 Estimated GFR > 60 Random Glucose 95 Calcium 9.1 Magnesium Total Bilirubin AST ALT Alkaline Phosphatase Troponin I High Sens 15.9 B-Natriuretic Peptide 29 Total Protein Albumin COVID-19 ([facility]) COVID-19 Clin Com 08/22/22 08/23/22 08/23/22 23:26 01:04 05:52 WBC RBC Hgb Hct MCV MCH MCHC RDW Plt Count MPV Immature Gran % (Auto) Neut % (Auto) Lymph % (Auto) [place] % (Auto) Eos % (Auto) Baso % (Auto) Lymph # (Auto) [place] # (Auto) Eos # (Auto) Baso # (Auto) Abs Immat Gran (auto) Absolute Neuts (auto) Absolute Nucleated RBC Nucleated RBC % (auto) PT INR APTT Sodium 139 Potassium 4.3 Chloride 105 Carbon Dioxide 26 Anion Gap 12 BUN 19 H Creatinine 0.97 Estim Creat Clear Calc 78.4 Estimated GFR > 60 Random Glucose 95 Calcium 9.0 Magnesium 1.8 Total Bilirubin 0.7 AST 14 ALT 17 Alkaline Phosphatase 70 Troponin I High Sens 16.6 B-Natriuretic Peptide Total Protein 6.3 L Albumin 3.9 COVID-19 ([facility]) Negative COVID-19 Clin Com See Note Imaging Chest x-ray: Radiologist's impression: ITS Impressions Chest X-Ray 08/22/22 22:16 IMPRESSION: Chronic appearing and postoperative changes. There is a subtle 6 mm nodular density projecting over the lateral right lung base. In theory this may represent a prominent nipple shadow. I do not have any prior films available for comparison. Repeat PA and lateral view of the chest with nipple markers would be recommended. If this finding persists, a CT scan may be needed to evaluate further. Discharge Plan Discharge Patient Disposition: Home, Self-Care Discharge Diagnosis: htn, pulmonary embolism, pulm embolism Referrals: Eren Petty MD [Primary Care Provider] - 1 Week Discharge Medications: New omeprazole 20 mg Capsule,Delayed Release(Dr/Ec) 20 mg PO DAILY@0630 Qty: 30 0RF Eliquis 5 mg Tablet 10 mg PO BID Qty: 52 0RF Rx Instructions: take 2 tabs eliquis by mouth twice daily for 1 week (until 08/29/22), then 1 tab eliquis by mouth twice daily Continued multivitamin Tablet 1 tab PO DAILY cholecalciferol (vitamin D3) 50 mcg (2,000 unit) Capsule 50 mcg PO DAILY losartan 50 mg tablet 1 tab PO DAILY atorvastatin 40 mg tablet 1 tab PO BEDTIME gabapentin 600 mg tablet 1 tab PO TID tamsulosin 0.4 mg capsule 1 cap PO DAILY tadalafil 20 mg tablet 1 tab PO DAILY PRN (Reason: Erectile Dysfunction) nebivolol 20 mg tablet 1 tab PO DAILY fexofenadine 180 mg Tablet 180 mg PO DAILY Changed amlodipine 2.5 mg tablet 2 tab PO DAILY Qty: 60 0RF Held aspirin 81 mg Tablet,Delayed Release (Dr/Ec) 81 mg PO DAILY Hold Instructions: Resume on 09/23/22. hold until patient on eliquis Discharge Orders: Discharge Order (Routine); Ordered 08/23/22 Ordered By: Richard Diaz Diet: Advance to usual diet Activity on Discharge: As tolerated Stand Alone Forms: Patient Portal Discharge page Care Plan Goals: Patient was admitted to the hospital because of acute PE diagnose outpatient-patient was started on Lovenox, and observed overnight. currently patient is totally asymptomatic, sats are fine. Walking fine without supplemental oxygen. Patient initially had some reproducible chest pain improved with toraldol -currently denies any symptoms. Patient was switched to Eliquis,Hold aspirin until the patient is on Eliquis. patient was strongly advised follow-up with PCP and consider outpatient hematology evaluation for duration and if needed for further workup . In addition patient blood pressure is fluctuating but still uncontrolled we have adjusted patient amlodipine to 5 mg daily. plan: Pulmonary embolism-started on Eliquis-10 mg b.i.d. for 1 week and then 5 mg b.i.d. consider outpatient hematology evaluation for further management and workup. Possible Lung nodule- noncontrast noncontrast chest CT follow-up is recommended outpatient in 3- 4 weeks with PCP. htn -adjusted amlodipine . Monitor blood pressure outpatient and follow-up with PCP. Above management discussed the patient detail. Health Concerns: As above. Plan of Treatment: As above. Assessment: As above. Patient Instructions: Pulmonary Embolism (DC)
--- NOTE | 2022-08-23 14:09 | MHC.CM.PN ---
PT WILL DC HOME TODAY WITH NO SERVICES HE WILL GO WITH NEW ELIQUIS RX 30-DAY COUPON PROVIDED TO TRANSPORT
[2022-08-23 15:56] VITALS: BP 158/92; PULSE 64; RESP 19; TEMP 36.3; O2SAT 96
== END 2022-08-23 16:41 | disposition home or self-care (01) ==
LOC: HO.ED 21:46 → HO.EDOVER 22:58 → HO.IMC 08-23 02:51
PROVIDERS: Physician Assistant; Physician Assistant Medical; Admitting Provider Internal Medicine; Emergency Provider Emergency Medicine; PCP Internal Medicine; Visit Provider Internal Medicine
DX: I26.99 Other pulmonary embolism without acute cor pulmonale (principal); I16.9 Hypertensive crisis, unspecified; R07.9 Chest pain, unspecified; R91.8 Other nonspecific abnormal finding of lung field; Z96.619 Presence of unspecified artificial shoulder joint; Z86.73 Personal history of transient ischemic attack (TIA), and cerebral infarction without residual deficits; Z79.01 Long term (current) use of anticoagulants; Z20.822 Contact with and (suspected) exposure to COVID-19
CPT/HCPCS: 36415; 71045; 71046; 80048; 80053; 83735; 83880; 84484; 85025; 85610; 85730; 87635; 93005; 99222; 99285; J1650; J1885; J3475